=== PATIENT | female | born 1975 | race Caucasian/White ===

== ENCOUNTER 2022-09-09 13:53 | Inpatient (IN) ==
--- NOTE | 2022-09-09 14:43 | Electrocardiogram Report ---
Test Reason : Blood Pressure : / mmHG Vent. Rate : 098 BPM Atrial Rate : 098 BPM P-R Int : 156 ms QRS Dur : 094 ms QT Int : 360 ms P-R-T Axes : 079 066 066 degrees QTc Int : 459 ms Normal sinus rhythm Normal ECG No previous ECGs available Confirmed by Robert Alston ([id number]) on 09/09/2022 2:43:15 PM Referred By: Confirmed By:Robert Alston
[2022-09-09] MEDS ORDERED: SODIUM CHLORIDE 0.9% 250 ML IV PRN (14:54)
[2022-09-09] MEDS ORDERED: SODIUM CHLORIDE 0.9% 1000ML 1,000 ML IV ONE (14:58)
--- NOTE | 2022-09-09 15:02 | Emergency Department Note ---
Impression & Plan Transaminitis, Tobacco use, Anemia, History of alcohol use ED Provider Note Provider: Myron Shukla MD DATE OF SERVICE: 09/09/2022 CHIEF COMPLAINT: Weak/dizzy HISTORY OF PRESENT ILLNESS: Patient is a 47-year-old female history depression presenting here today after outpatient blood work showed significant anemia. Patient seen in the outpatient setting earlier. Reports some black stool over the past week. Feeling bit dizzy and weak at times. Denies any pain. Denies drug use. Denies to me alcohol use although daughter and notes rarely indicates that she does have a history of alcohol use significantly. Patient denies significant nausea or vomiting. No syncope reported. Had had some minimal falls of several weeks ago but nothing in the last several days. Denies a history of blood transfusion. Family states she may have had a little bit of jaundice earlier in the week. PAST MEDICAL HISTORY: As noted above MEDICATIONS: Reviewed home medication list includes PPI SOCIAL HISTORY: PHYSICAL EXAM: GENERAL: alert and oriented in no acute distress on stretcher Head: normocephalic and atraumatic EYES: No injection, discharge or icterus. NECK: Trachea midline. Supple. ENT: Mucous membranes pink and moist. Pharynx without erythema or exudate. LUNGS: Airway patent. No retractions. Breath sounds clear with good air entry bilaterally. HEART: Regular rate and rhythm. No chest wall tenderness ABDOMEN: Soft and non-tender, without guarding or rebound. SKIN: Acyanotic, warm, dry, without rashes EXTREMITIES: Without swelling, tenderness or deformity NEUROLOGICAL: No focal deficits. No aphasia. No facial droop or slurred speech. Normal strength and tone in the extremities. Sensation to gross touch normal. Ambulatory. EK bpm normal sinus rhythm. No PVC or PAC. No acute ST segment elevation or depression with a QTc of 459. CONTINUOUS CARDIAC MONITORING: was ordered and showed a heart rate of 90s bpm in normal sinus rhythm Patient's laboratory studies and imaging reviewed. Differential includes Diverticulosis, AVM, coagulopathy, colitis, inflammatory bowel disease, malignancy, Camila-Mcmullen tear, esophagitis, peptic ulcer disease, variceal bleed, gastritis, epistaxis, fissure, hemorrhoids, as well as other pathologies. IMPRESSION/MEDICAL DECISION MAKING: Microcytic anemia is noted and repeat labs here show slightly lower hemoglobin of 6.5. Initially hypotensive here and given some IV fluids to which she responded well. Not having active upper GI vomiting and BUN not severely elevated. Question more of a slow chronic process but does appear to have some Hemoccult positive melena. Mild hyponatremia of 129 noted. Although no signifi cant trauma to complete a CT of the head as well as the abdomen pelvis given the report that there is some alcohol use to exclude any occult injury. CT reports are reassuring with only some hepatic steatosis noted. Given some Protonix although again I doubt this is a severe upper GI bleed at this point. Mild transaminitis without bilirubin elevation again seems more likely related to possibly some underlying mild liver inflammation. Iron and hepatitis panel sent. 1 unit of blood ordered with consent complete. May need more depending on trend of her hemoglobin. Discussed with her staying for further evaluation to monitor both for stability of her hemoglobin as well as further work-up of her LFT abnormalities and underlying cause of anemia. Given a nicotine patch per her request as she is a smoker. Discussed with hospitalist and will need to monitor for withdrawal symptoms. DIAGNOSIS: Anemia, melena, transaminitis DISPOSITION: Hospitalist will evaluate Patient was agreeable with this plan. Critical Care I have personally spent 32 minutes of critical care time in the direct management of this patient. This includes bedside care, interpretation of diagnostic studies, and testing, discussion with consultants, patient, and family members, and other required patient management activities. These 32 minutes is in excess of all separately billable procedures. Past Med/Surg History Medical History Acid reflux Tobacco use Surgical History History of cryosurgery Family History Mother Lung cancer Throat cancer Cervical cancer, Onset Age: 64 Father Atrial fibrillation Sister Known health problems: none Sister No problems noted. Daughter No problems noted. Denies family history of Colon cancer Ovarian cancer Prostate cancer Myocardial infarction Breast cancer Uterine cancer Social History Smoking Status: Current every day smoker Tobacco Type: Cigarettes Age Started Using Tobacco: 28; packs per day: 1; Second Hand Exposure: Yes; Do You Dip or Chew Tobacco: No; Hx Alcohol Use: Yes Alcohol type: beer and wine Alcohol Intake Frequency: Monthly or Less Hx Substance Use: No Preferred Language: German Communication Ability: Effective Visual Impairment: No Limitations Hearing Ability: Normal [employer] Required: No marital status: Current Living Situation: Spouse current occupational status: employed 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 Feels Safe at Home: Yes Childhood Exposure to Second-Hand Smoke: Yes Diet: regular Diet Comment: regular caffeine: Yes during the past year weight has: remained stable Dental Care, Regularly: Yes Physical Activity Frequency: 1-2 Times per Week Seatbelt Use: always Sunscreen Use: No Assistive Devices: Glasses Allergies Allergies Allergy/AdvReac Type Severity Reaction Status Date / Time bee venom protein (honey bee) Allergy Verified 09/09/22 07:53 No Known Drug Allergies Allergy Verified 09/09/22 07:53 Home Meds Home Medications Medication Instructions Recorded Confirmed diphenhydramine HCl 25 mg capsule 25 mg PO HS PRN Sleep 02/27/21 09/09/22 (Benadryl) Previous Rx's Medication Instructions Recorded omeprazole 20 mg capsule,delayed 20 mg PO DAILY #90 caps 05/06/22 release bupropion HCl 100 mg tablet,12 hr 100 mg PO BID #180 ea 09/09/22 sustained-release (Wellbutrin SR) Results & Data (ED) Vital Signs Vital Signs - 24 hr 09/09/22 14:03 09/09/22 14:38 09/09/22 14:44 Temperature 36.8 C Temperature Source Temporal Artery Scan Pulse Rate 111 H 101 H 99 H Pulse Rate from SpO2 Sensor 99 H Respiratory Rate 16 16 Blood Pressure 98/61 L 118/73 Blood Pressure Mean 73 88 Pulse Oximetry 99 99 Oxygen Delivery Method Room Air Oxygen Flow Rate Sepsis Recent Fever Within 48 Hours No Sepsis New/Unexplained Change in Mental Status N/A Sepsis Action Taken by Nursing Physician Notified 09/09/22 15:00 09/09/22 16:57 09/09/22 17:15 Temperature 37.1 C 37.3 C Temperature Source Oral Oral Pulse Rate 95 H 94 H 93 H Pulse Rate from SpO2 Sensor Respiratory Rate 19 20 18 Blood Pressure 107/69 110/64 116/76 Blood Pressure Mean 81 79 89 Pulse Oximetry 98 99 Oxygen Delivery Method Oxygen Flow Rate 0 Sepsis Recent Fever Within 48 Hours Sepsis New/Unexplained Change in Mental Status Sepsis Action Taken by Nursing Laboratory Data 09/09/22 14:21 09/09/22 14:21 Lab Results 09/09/22 09/09/22 09/09/22 Range/Units 14:21 14:21 14:21 WBC 5.53 (4.8-10.8) K/ul RBC 2.80 L (4.20-5.40) M/uL Hgb 6.5 L* (12.0-16.0) g/dl Hct 21.3 L (37.0-47.0) % MCV 76.1 L (80.0-100.0) fL MCH 23.2 L (25.0-34.0) pg MCHC 30.5 L (32.0-36.0) g/dL RDW Std Deviation 49.1 H (36.4-46.3) fL RDW Coeff of Lewis 17.8 H (11.5-14.5) % Plt Count 201 (130-400) K/uL MPV 9.1 L (9.4-12.4) fL PT 10.9 (9.0-12.0) Seconds INR 1.0 (0.9-1.1) APTT 25.3 (21.0-31.0) Seconds PTT Ratio 0.9 Sodium (136-145) mmol/L Potassium (3.5-5.1) mmol/L Chloride (98-107) mmol/L Carbon Dioxide (21-32) mmol/L Anion Gap (3-11) BUN (6-23) mg/dl Creatinine (0.6-1.2) mg/dl Est Cr Clr Drug Dosing ml/min Est GFR ( Amer) ml/min Est GFR (Non-Af Amer) ml/min BUN/Creatinine Ratio (10-20) Glucose (70-99(Fasting)) mg/dl Calcium (8.6-10.3) mg/dl Iron (35-150) mcg/dl TIBC (250-450) mcg/dl Unsaturated IBC (155-355) mcg/dl Transferrin % Sat (15-50) % Total Bilirubin (0.2-1.0) mg/dl AST (13-39) U/L ALT (7-52) U/L Alkaline Phosphatase (34-104) U/L Troponin I High Sens (0-14) pg/ml Total Protein (6.0-8.3) gm/dl Albumin (3.4-5.0) gm/dl Globulin (2.5-4.0) gm/dl Albumin/Globulin Ratio (0.9-2) HCG, Qual (Negative) POC Stool Occult Blood (Negative) SARS-CoV-2, RNA, NAAT (NEGATIVE) Blood Type A Negative Blood Type Recheck Antibody Screen NEGATIVE Crossmatch See Detail 09/09/22 09/09/22 09/09/22 Range/Units 14:21 14:21 14:21 WBC (4.8-10.8) K/ul RBC (4.20-5.40) M/uL Hgb (12.0-16.0) g/dl Hct (37.0-47.0) % MCV (80.0-100.0) fL MCH (25.0-34.0) pg MCHC (32.0-36.0) g/dL RDW Std Deviation (36.4-46.3) fL RDW Coeff of Lewis (11.5-14.5) % Plt Count (130-400) K/uL MPV (9.4-12.4) fL PT (9.0-12.0) Seconds INR (0.9-1.1) APTT (21.0-31.0) Seconds PTT Ratio Sodium 129 L (136-145) mmol/L Potassium 3.7 (3.5-5.1) mmol/L Chloride 99 (98-107) mmol/L Carbon Dioxide 26 (21-32) mmol/L Anion Gap 4 (3-11) BUN 4 L (6-23) mg/dl Creatinine 0.45 L (0.6-1.2) mg/dl Est Cr Clr Drug Dosing 125.1 ml/min Est GFR ( Amer) 136.4 ml/min Est GFR (Non-Af Amer) 117.7 ml/min BUN/Creatinine Ratio 8.9 L (10-20) Glucose 81 (70-99(Fasting)) mg/dl Calcium 8.1 L (8.6-10.3) mg/dl Iron 10 L Cancelled (35-150) mcg/dl TIBC 310 Cancelled (250-450) mcg/dl Unsaturated IBC 300 Cancelled (155-355) mcg/dl Transferrin % Sat 3 L Cancelled (15-50) % Total Bilirubin 0.2 (0.2-1.0) mg/dl AST 160 H (13-39) U/L ALT 75 H (7-52) U/L Alkaline Phosphatase 207 H (34-104) U/L Troponin I High Sens 8.2 (0-14) pg/ml Total Protein 7.6 (6.0-8.3) gm/dl Albumin 3.2 L (3.4-5.0) gm/dl Globulin 4.4 H (2.5-4.0) gm/dl Albumin/Globulin Ratio 0.7 L (0.9-2) HCG, Qual Negative (Negative) POC Stool Occult Blood (Negative) SARS-CoV-2, RNA, NAAT (NEGATIVE) Blood Type Blood Type Recheck Antibody Screen Crossmatch 09/09/22 09/09/22 09/09/22 Range/Units 14:50 15:05 15:52 WBC (4.8-10.8) K/ul RBC (4.20-5.40) M/uL Hgb (12.0-16.0) g/dl Hct (37.0-47.0) % MCV (80.0-100.0) fL MCH (25.0-34.0) pg MCHC (32.0-36.0) g/dL RDW Std Deviation (36.4-46.3) fL RDW Coeff of Lewis (11.5-14.5) % Plt Count (130-400) K/uL MPV (9.4-12.4) fL PT (9.0-12.0) Seconds INR (0.9-1.1) APTT (21.0-31.0) Seconds PTT Ratio Sodium (136-145) mmol/L Potassium (3.5-5.1) mmol/L Chloride (98-107) mmol/L Carbon Dioxide (21-32) mmol/L Anion Gap (3-11) BUN (6-23) mg/dl Creatinine (0.6-1.2) mg/dl Est Cr Clr Drug Dosing ml/min Est GFR ( Amer) ml/min Est GFR (Non-Af Amer) ml/min BUN/Creatinine Ratio (10-20) Glucose (70-99(Fasting)) mg/dl Calcium (8.6-10.3) mg/dl Iron (35-150) mcg/dl TIBC (250-450) mcg/dl Unsaturated IBC (155-355) mcg/dl Transferrin % Sat (15-50) % Total Bilirubin (0.2-1.0) mg/dl AST (13-39) U/L ALT (7-52) U/L Alkaline Phosphatase (34-104) U/L Troponin I High Sens (0-14) pg/ml Total Protein (6.0-8.3) gm/dl Albumin (3.4-5.0) gm/dl Globulin (2.5-4.0) gm/dl Albumin/Globulin Ratio (0.9-2) HCG, Qual (Negative) POC Stool Occult Blood Positive A (Negative) SARS-CoV-2, RNA, NAAT NEGATIVE (NEGATIVE) Blood Type Blood Type Recheck A Negative Antibody Screen Crossmatch Administered Medications Pantoprazole Sodium 40 mg/ (Dextrose) 100 mls @ 20 mls/hr IV Q5H DIAMOND Stop: 10/09/22 15:29 Last Admin: 09/09/22 15:59 Dose: 8 mg/hr, 20 mls/hr Documented By: ROMA Nicotine (Nicotine 21 Mg/24 Hr Tdsy) 21 mg TD QAM DIAMOND Stop: 10/09/22 16:14 Last Admin: 09/09/22 16:22 Dose: 21 mg Documented By: ROMA Discontinued Medications Sodium Chloride (Nss 1000ml) 1,000 mls @ 999 mls/hr IV .Q1H1M ONE Stop: 09/09/22 15:58 Last Infusion: 09/09/22 16:08 Dose: 0 mls/hr Documented By: Admin: 09/09/22 15:07 Dose: 999 mls/hr Documented By: MALENA Pantoprazole Sodium (Protonix Bolus/Drip) 0 mls @ 1 mls/hr IV ONE STA Stop: 09/09/22 15:16 Last Infusion: 09/09/22 16:14 Dose: 0 mls/hr Documented By: Admin: 09/09/22 16:04 Dose: 1 mls/hr Documented By: ROMA Pantoprazole Sodium 80 mg/ (Dextrose) 120 mls @ 400 mls/hr IV NOW ONE Stop: 09/09/22 15:32 Last Infusion: 09/09/22 15:55 Dose: 0 mls/hr Documented By: Admin: 09/09/22 15:37 Dose: 400 mls/hr Documented By: ROMA Ioversol (Optiray 320 100ml) 84 ml IV ONCE ONE Stop: 09/09/22 15:22 Last Admin: 09/09/22 15:22 Dose: 84 ml Documented By: YOSEF Imaging Data Radiologist's Impression: Abdomen/Pelvis CT 09/09/22 14:54 CT abd pelvis IV con only CLINICAL HISTORY: anemia, elevated LFTs TECHNIQUE: Helical axial images of the abdomen and pelvis were obtained and displayed. Automated dose lowering techniques and/or adjustment according to patient size were utilized for this exam. This exam was performed with intravenous contrast. CT DOSE: 1036.75 mGy.cm COMPARISON: Comparison is made to pelvic ultrasound 03/24/2019 FINDINGS: Lower chest: No acute abnormality. Liver: Hepatic steatosis is noted. Gallbladder and biliary tree: No calcified gallstones. Normal caliber wall. No intra- or extrahepatic biliary ductal dilation. Pancreas: Unremarkable, no focal lesions. Spleen: Unremarkable. Adrenals: Unremarkable. Kidneys and ureters: Unremarkable. Bladder: Prominence of the bladder is seen. Reproductive organs: Unremarkable. Bowel: Unremarkable. Lymph nodes Retroperitoneal: Unremarkable. Pelvic: Unremarkable. Mesenteric: Unremarkable. Peritoneum: Normal. Vessels: Atherosclerotic calcifications are seen. Abdominal wall: Unremarkable. Bones: Degenerative changes in the visualized spine. IMPRESSION: Hepatic steatosis is seen, steatohepatitis cannot be excluded. Otherwise no acute abnormalities. ACT 112: Negative or not required by law. Electronically signed by: Wes Tse M.D. 09/09/2022 3:[address] 09/09/22 14:[address] DOSE: HISTORY: dizzy TECHNIQUE: Multiaxial CT images of the head were performed without the use of intravenous contrast. Automated exposure control was utilized for this study. A dose lowering technique was utilized adhering to the principles of ALARA. Comparison: None. Findings: The paranasal sinuses and mastoid air cells are clear. The calvarium and skull base are intact. The ventricles and sulci are within normal limits. There is no mass, hematoma, midline shift, or acute infarct. Impression: No acute intracranial abnormality. ACT 112: Negative or not required by law. Electronically signed by: Laith Hays M.D. 09/09/2022 3:47 PM Discharge Plan Visit Data Chief Complaint: Vertigo Stated Complaint: DIZZY,LOW BLOOD,REF BY DOC,HEMOGLOBIN 7 ED Provider: Myron Shukla Discharge Problem: Transaminitis, Tobacco use, Anemia, History of alcohol use Patient Disposition: Being Evaluated by Hospitalist Forms Stand Alone Forms: My [facility] [place] [facility] Prescriptions Prescriptions: No Action omeprazole 20 mg capsule,delayed release(DR/EC) 20 mg PO DAILY Qty: 90 1RF diphenhydramine HCl [Benadryl] 25 mg capsule 25 mg PO HS PRN (Reason: Sleep) bupropion HCl [Wellbutrin SR] 100 mg tablet sustained-release 12 hr 100 mg PO BID Qty: 180 1RF Referrals Referrals: Patricia Arias MD [Primary Care Provider] -
[2022-09-09 15:03] LABS: Albumin Globulin Ratio 0.7 (0.9-2); Albumin Level 3.2 gm/dl (3.4-5.0); BUN Creatinine Ratio 8.9 (10-20); Bilirubin,Total 0.2 mg/dl (0.2-1.0); Calcium 8.1 mg/dl (8.6-10.3); Creatinine Clr Calc Pharmacy 125.1 ml/min; Est GFR (African American) 136.4 ml/min; Est GFR (Non-African American) 117.7 ml/min; Globulin 4.4 gm/dl (2.5-4.0); Potassium 3.7 mmol/L (3.5-5.1); Total Protein 7.6 gm/dl (6.0-8.3)
[2022-09-09 15:04] LABS: Partial Thromboplastin Ratio 0.9; Partial Thromboplastin Time 25.3 Seconds (21.0-31.0); Prothrombin Time 10.9 Seconds (9.0-12.0)
[2022-09-09 15:08] LABS: Hematocrit (blood only) 21.3 % (37.0-47.0); Hemoglobin 6.5 g/dl (12.0-16.0); Mean Corpuscular Hemoglobin 23.2 pg (25.0-34.0); Mean Corpuscular Hgb Conc 30.5 g/dL (32.0-36.0); Mean Corpuscular Volume 76.1 fL (80.0-100.0); Mean Platelet Volume 9.1 fL (9.4-12.4); Platelet Count 201 K/uL (130-400); RDW Coefficient of Variation 17.8 % (11.5-14.5); RDW Standard Deviation 49.1 fL (36.4-46.3); White Blood Count 5.53 K/ul (4.8-10.8)
[2022-09-09 15:09] LABS: Troponin I High Sensitivity 8.2 pg/ml (0-14)
[2022-09-09] MEDS ORDERED: PANTOprazole 80 MG in DEXTROSE 5% 100 ML IV ONE (15:15)
[2022-09-09] MEDS ORDERED: PANTOPRAZOLE BOLUS/DRIP 1 EACH IV STA (15:15)
[2022-09-09] MEDS ORDERED: OPTIRAY 320 100ml IV ONE (15:21)
[2022-09-09 15:37] LABS: Pregnancy Test, Serum Negative (Negative)
--- NOTE | 2022-09-09 15:49 | CT Scan Report ---
HEAD CT NONCONTRAST CT DOSE: HISTORY: dizzy TECHNIQUE: Multiaxial CT images of the head were performed without the use of intravenous contrast. A utomated exposure control was utilized for this study. A dose lowering technique was utilized adheri ng to the principles of ALARA. Comparison: None. Findings: The paranasal sinuses and mastoid air cells are clear. The calvarium and skull base are int act. The ventricles and sulci are within normal limits. There is no mass, hematoma, midline shift, or acute infarct. Impression: No acute intracranial abnormality. ACT 112: Negative or not required by law. Electronically signed by: Laith Hays M.D. 09/09/2022 3:47 PM
--- NOTE | 2022-09-09 15:50 | CT Scan Report ---
CT abd pelvis IV con only CLINICAL HISTORY: anemia, elevated LFTs TECHNIQUE: Helical axial images of the abdomen and pelvis were obtained and displayed. Automated dose lowering techniques and/or adjustment according to patient size were utilized for this exam. This e xam was performed with intravenous contrast. CT DOSE: 1036.75 mGy.cm COMPARISON: Comparison is made to pelvic ultrasound 03/24/2019 FINDINGS: Lower chest: No acute abnormality. Liver: Hepatic steatosis is noted. Gallbladder and biliary tree: No calcified gallstones. Normal caliber wall. No intra- or extrahepatic biliary ductal dilation. Pancreas: Unremarkable, no focal lesions. Spleen: Unremarkable. Adrenals: Unremarkable. Kidneys and ureters: Unremarkable. Bladder: Prominence of the bladder is seen. Reproductive organs: Unremarkable. Bowel: Unremarkable. Lymph nodes Retroperitoneal: Unremarkable. Pelvic: Unremarkable. Mesenteric: Unremarkable. Peritoneum: Normal. Vessels: Atherosclerotic calcifications are seen. Abdominal wall: Unremarkable. Bones: Degenerative changes in the visualized spine. IMPRESSION: Hepatic steatosis is seen, steatohepatitis cannot be excluded. Otherwise no acute abnormalities. ACT 112: Negative or not required by law. Electronically signed by: Wes Tse M.D. 09/09/2022 3:49 PM
[2022-09-09] MEDS: PANTOprazole 40 MG in DEXTROSE 5% 100 ML IV SCH (15:59)
[2022-09-09] MEDS: NICOTINE 21 MG/24 HR TDSY TD SCH (16:22)
--- NOTE | 2022-09-09 16:29 | History & Physical Report ---
Date of Service September 09, 2022 Assessment & Plan (1) Chronic anemia: Plan: Symptomatic anemia Hemoglobin initially 7.0, recheck 6.5 - Hemoglobin was 13.4 in 2019, hemoglobin on initial ER evaluation 7.0 on recheck 6.5 while in ER. MCV is microcytic at 76.1. Patient is hyponatremic at 129, creatinine 0.45. Patient did have some lightheadedness and dizziness prior to admission and reports a few episodes intermittently in the preceding months. Has not had chest pain, chest pressure, shortness of breath, difficulty breathing at any point. Uses a push mower without chest pain baseline. No syncope Transferrin saturation 3% with Hemoccult positive stool, patient endorses melena intermittently over the last week. No melena prior to this. BUN is not elevated Patient is mentating normally, MCV 76, suspect that this is a slow chronic bleed +/- nutritional insufficiency rather than acute bleeding. Does have a history of GERD, although no epigastric tenderness on evaluation. Transfuse to threshold of 7.0, H&H pending post 1 unit of blood which has been ordered B12, folate levels pending Follow hemoglobin post transfusion. If appropriate rise >1.0g in stable, then defer additional blood, transfuse for threshold of 7.0 on recheck, and start v enofer 09/10-09/12 which has been ordered. If additional blood requried hold venofer, do not give same day. Iron 10, TIBC 310, UIBC 300, transferrin saturation 3% High-sensitivity troponin is normal at 8.2 Occult blood positive stool, intermittent dark stool in the last week. No prior melena. CTA/P with IV contrast: Hepatic steatosis, no other acute abnormalities. No evidence of extravasation/ EKG: Normal sinus rhythm, QTc 459, no acute ischemic changes If hemoglobin up trends, and patient does well with blood transfusion, PPI, and Venofer may continue medical management and PPI twice daily and have EGD/colonoscopy as outpatient. If patient is hemodynamically unstable or has continued downtrend of hemoglobin, consult GI for inpatient evaluation and endoscopy at that time Transaminitis suspect from alcohol use Patient with increased alcohol for at least 2 months, patient reports she drinks 3 to 5 days/week ranging from 4-10 beers per sitting. Last drink evening of 09/08 Patient is with transaminitis AST 160, ALT 75, alk phos 207. Total bilirubin is normal CT as noted with hepatic steatosis No prior history of withdrawal, no stretches more than 4 days alcohol free in the preceding 2 months AVSS ordered Thiamine high-dose protocol ordered, folic acid ordered Banana bag deferred while patient is receiving blood. Hepatitis acute panel pending Anxiety/depression Bupropion held while n.p.o. GERD Omeprazole converted to PPI bolus and twice daily push as noted Patient has no epigastric tenderness on exam but has had melena Hyponatremia Sodium 129, mild Suspect solute depletion IVF M as above, trend BMP. If sodium downtrending, will fluid restrict and obtain urine sodium/urine osmolality/serum osmolality. If sodium improves/normalizes following fluids defer these. BMP in 6 hours ordered DVT prophylaxis: SCDs, pharmacal prophylaxis contraindicated in the setting of bleed/anemia Diet: N.p.o., LR IV FM Disposition: PCU CODE STATUS: Full code (2) Melena: (3) Alcohol abuse: (4) Tobacco use: (5) Acid reflux: History of Present Illness Primary Care Provider: Patricia Arias MD Sobeida is a 47-year-old female with a past medical history of alcohol abuse, hypertension, depression, GERD, tobacco use who presents for symptomatic anemia. Sobeida reports that she fell on Friday. Has been having black tarry stools for 1 week. Has them intermittently not every day. No stomach pain. No nausea or vomiting.Prior to this week no dark/black BMs. Lightheadedness and dizziness started one week ago. Has had intermittently off and on in the past a few episodes a month. Eppisodes usually last a few hours. Sitting improves them, manning snot note any exacerbating factors. No vertigo. No history of bleeding problems. No fevers, chills, or sweats. No recent illnesses. No chest pain or chest or chest pressure. Has >10 stairs in her home and goes up those and she push mow her grass. No chest pain or pressure/shortness of breath with those activities. Endorses hx of acid reflux/GERD for a few years but seems to be 'under control' with 20mg of prilosec daily which she has been on for at least 3 years. No history of upper endoscopy or lower endoscopy. Uses ibuprofen occasionally, usually about monthly will take 4x 200mg usually just once and does OK, uses as needed for muscle strains and headache as normal Denies other medical problems. NO family history of bleeding problems. Father had a history of afib with cardioembolic CVA around 60s. No family history of colon or rectal cancer Medical History: Reviewed Medications: Reviewed Surgical History: Reviewed. Family history: Reviewed Allergies: Reviewed. NKDA, NKFA. Allergic to bees. Social History: Current smoker, 1ppd tobacco use x20 years. Alcohol ~3-4, beer and number ranges from 3-10 per day. Last drink yesteday evening. No rec drug or marijuana use. Code Status: Full Code. Allergies Allergy/AdvReac Type Severity Reaction Status Date / Time bee venom protein (honey bee) Allergy Verified 09/09/22 07:53 No Known Drug Allergies Allergy Verified 09/09/22 07:53 Home Medications Medication Instructions Recorded Confirmed Type diphenhydramine HCl 25 mg capsule 25 mg PO HS PRN Sleep 02/27/21 09/09/22 History (Benadryl) omeprazole 20 mg capsule,delayed 20 mg PO DAILY #90 caps 05/06/22 09/09/22 Rx release bupropion HCl 100 mg tablet,12 hr 100 mg PO BID #180 ea 09/09/22 09/09/22 Rx sustained-release (Wellbutrin SR) Past Med/Surg History Medical History Acid reflux Tobacco use Surgical History History of cryosurgery Family History Mother Lung cancer Throat cancer Cervical cancer, Onset Age: 64 Father Atrial fibrillation Sister Known health problems: none Sister No problems noted. Daughter No problems noted. Denies family history of Colon cancer Ovarian cancer Prostate cancer Myocardial infarction Breast cancer Uterine cancer Social History Smoking Status: Current every day smoker Tobacco Type: Cigarettes Age Started Using Tobacco: 28; packs per day: 1; Second Hand Exposure: Yes; Do You Dip or Chew Tobacco: No; Hx Alcohol Use: Yes Alcohol type: beer and wine Alcohol Intake Frequency: Monthly or Less Hx Substance Use: No Preferred Language: [place] Communication Ability: Effective Visual Impairment: No Limitations Hearing Ability: Normal [employer] Consultant Required: No marital status: Current Living Situation: Spouse current occupational status: employed 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 Feels Safe at Home: Yes Childhood Exposure to Second-Hand Smoke: Yes Diet: regular Diet Comment: regular caffeine: Yes during the past year weight has: remained stable Dental Care, Regularly: Yes Physical Activity Frequency: 1-2 Times per Week Seatbelt Use: always Sunscreen Use: No Assistive Devices: Glasses Review of Systems Review of Systems: All systems reviewed & are unremarkable except as noted in HPI & below Physical Exam Physical Exam: General: A&Ox3. NAD. Cooperative. HEENT: Atraumatic, normocephalic. Vision/hearing intact Pulm: CTAB A&P. -wheezes, -rales, -rhonchi. Symmetrical chest rise. No increased work of breathing. No respiratory distress. Cardiac: Mild tachycardia, regular, -mrg. Radial pulses intact and symmetrical. Abdominal: Nontender, nondistended, soft. BS present. Specific there is no epigastric tenderness on exam Extremities: Warm, dry. Distal extremity strength and sensation is intact and symmetrical. Results & Data Results & Data Vital Signs (Past 12 Hours) Vital Signs Temp Pulse Resp BP Pulse Ox O2 Del Method 09/09/22 15:00 95 H 19 107/69 09/09/22 14:44 99 H 16 118/73 99 Room Air 09/09/22 14:38 101 H 09/09/22 14:03 36.8 C 111 H 16 98/61 L 99 PG Care Time/CCT Total # of Minutes Spent Total Time Spent with Patient: Total time spent is greater than 50% in coordination of care (as documented) at patient's floor/unit and/or counseling patient: Coding Level of Care Code 93315 INT INP/OBS CARE 3/75MIN Diagnoses Chronic anemia D64.9 Melena K92.1 Alcohol abuse F10.10 Tobacco use Z72.0 Acid reflux K21.9
[2022-09-09 19:01] LABS: Appearance Urine Clear (Clear); Bilirubin Urine Negative (Negative); Blood Urine Negative (Negative); Color Urine Yellow; Glucose Urine UA Negative (Negative); Ketones Urine Negative (Negative); Leukocyte Esterase Urine Negative (Negative); Nitrite Urine Negative (Negative); Protein Urine Negative (Negative); Specific Gravity Urine 1.026 (1.000-1.030); Urobilinogen Urine Negative (Negative); pH Urine 5.5 (4.5-7.5)
[2022-09-09] MEDS ORDERED: Ativan PO Alcohol Withdrawal--Active Protocol PO PRN (19:53)
[2022-09-09] MEDS ORDERED: LORazepam 1 MG TAB PO PRN ×3 (19:53)
[2022-09-09] MEDS ORDERED: LORazepam 2 MG/1 ML VIAL IV PRN ×2 (19:56→20:30)
[2022-09-09] MEDS ORDERED: THIAMINE HCL 100 MG/ML 2 ML VIAL IV STA (20:30)
[2022-09-09] MEDS ORDERED: THIAMINE HCL 500 MG in SODIUM CHLORIDE 0.9% 50 ML IV STA (20:37)
[2022-09-09] MEDS: FOLIC ACID 1 MG in SYRINGE 9.8 ML IV SCH (21:33)
[2022-09-09] MEDS: PANTOprazole 40 MG in SYRINGE 0 ML IV SCH (21:33)
[2022-09-09] MEDS: LACTATED RINGER'S 1,000 ML IV SCH (21:42)
[2022-09-09] MEDS ORDERED: diphenhydrAMINE 50 MG/ML VIAL IV STA (22:27)
[2022-09-09 22:49] LABS: Hematocrit (blood only) 22.3 % (37.0-47.0); Hemoglobin 7.2 g/dl (12.0-16.0)
[2022-09-09 23:05] LABS: BUN Creatinine Ratio 9.3 (10-20); Calcium 7.3 mg/dl (8.6-10.3); Creatinine Clr Calc Pharmacy 125.2 ml/min; Est GFR (African American) 138.4 ml/min; Est GFR (Non-African American) 119.4 ml/min; Potassium 3.7 mmol/L (3.5-5.1)
[2022-09-10 03:51] LABS: Basophils # (auto) 0.06 K/uL (0-0.2); Basophils % (auto) 0.9 %; Eosinophils # (auto) 0.06 K/uL (0-0.50); Eosinophils % (auto) 0.9 %; Hematocrit (blood only) 24.3 % (37.0-47.0); Hemoglobin 7.9 g/dl (12.0-16.0); Immature Granulocytes # (auto) 0.05 K/uL (0.01-0.20); Immature Granulocytes % (auto) 0.7 %; Lymphocytes # (auto) 0.88 K/uL (1.2-3.4); Lymphocytes % (auto) 13.1 %; Mean Corpuscular Hgb Conc 32.5 g/dL (32.0-36.0); Mean Corpuscular Volume 76.9 fL (80.0-100.0); Mean Platelet Volume 9.2 fL (9.4-12.4); Monocytes # (auto) 0.84 K/uL (0.11-0.59); Monocytes % (auto) 12.5 %; Neutrophils # (auto) 4.82 K/uL (1.40-6.50); Neutrophils % (auto) 71.9 %; Platelet Count 182 K/uL (130-400); RDW Standard Deviation 50.5 fL (36.4-46.3); Red Blood Count 3.16 M/uL (4.20-5.40); White Blood Count 6.71 K/ul (4.8-10.8)
[2022-09-10 04:06] LABS: Albumin Globulin Ratio 0.7 (0.9-2); Albumin Level 2.7 gm/dl (3.4-5.0); BUN Creatinine Ratio 10.9 (10-20); Bilirubin,Total 0.4 mg/dl (0.2-1.0); Calcium 7.5 mg/dl (8.6-10.3); Est GFR (African American) 135.4 ml/min; Est GFR (Non-African American) 116.8 ml/min; Potassium 3.7 mmol/L (3.5-5.1); Total Protein 6.7 gm/dl (6.0-8.3)
[2022-09-10 04:10] LABS: Polychromasia 1+; Target Cells 1+
[2022-09-10] MEDS: LACTATED RINGER'S 1,000 ML IV SCH ×3 (06:05→23:42)
[2022-09-10] MEDS: PANTOprazole 40 MG in SYRINGE 0 ML IV SCH ×2 (07:49→21:06)
[2022-09-10] MEDS: FOLIC ACID 1 MG in SYRINGE 9.8 ML IV SCH (07:49)
[2022-09-10] MEDS: THIAMINE HCL 100 MG in SYRINGE 9 ML IV SCH (07:49)
[2022-09-10] MEDS: NICOTINE 21 MG/24 HR TDSY TD SCH (09:44)
[2022-09-10] MEDS ORDERED: IRON SUCROSE 400 MG in SODIUM CHLORIDE 0.9% 250 ML IV ONE (10:00)
[2022-09-10 10:27] LABS: Hematocrit (blood only) 23.5 % (37.0-47.0); Hemoglobin 7.7 g/dl (12.0-16.0)
[2022-09-10] MEDS ORDERED: chlordiazePOXIDE ALCOHOL WITHDRAWL 50MG PO STA (14:28)
[2022-09-10 14:54] LABS: Hematocrit (blood only) 25.4 % (37.0-47.0); Hemoglobin 8.3 g/dl (12.0-16.0)
[2022-09-10] MEDS: chlordiazePOXIDE HCl 25 MG CAP PO SCH ×2 (14:59→21:06)
[2022-09-10 15:36] LABS: Iron 736 mcg/dl (35-150); Unsaturated Iron Binding Cap < 55 mcg/dl (155-355)
[2022-09-10 15:43] LABS: Ferritin 23.3 ng/ml (8-388)
[2022-09-10] MEDS: PANTOprazole 40 MG in DEXTROSE 5% 100 ML IV SCH (19:10)
--- NOTE | 2022-09-10 21:18 | Hospitalist Progress Note ---
Date of Service September 10, 2022 Assessment & Plan (1) Chronic anemia: Plan: Symptomatic anemia Hemoglobin initially 7.0, recheck 6.5 - Hemoglobin was 13.4 in 2019, hemoglobin on initial ER evaluation 7.0 on recheck 6.5 while in ER. MCV is microcytic at 76.1. Patient is hyponatremic at 129, creatinine 0.45. Patient did have some lightheadedness and dizziness prior to admission and reports a few episodes intermittently in the preceding months. Has not had chest pain, chest pressure, shortness of breath, difficulty breathing at any point. Uses a push mower without chest pain baseline. No syncope Transferrin saturation 3% with Hemoccult positive stool, patient endorses melena intermittently over the last week. No melena prior to this. BUN is not elevated Patient is mentating normally, MCV 76, suspect that this is a slow chronic bleed +/- nutritional insufficiency rather than acute bleeding. Does have a history of GERD, although no epigastric tenderness on evaluation. Transfuse to threshold of 7.0, H&H pending post 1 unit of blood which has been ordered Blood work is pointing towards iron deficiency anemia. consult GI pending. Patients hemoglobin appears stable. Will continue to monitor hemoglobin. Iron 10, TIBC 310, UIBC 300, transferrin saturation 3% High-sensitivity troponin is normal at 8.2 Occult blood positive stool, intermittent dark stool in the last week. No prior melena. CTA/P with IV contrast: Hepatic steatosis, no other acute abnormalities. No evidence of extravasation/ EKG: Normal sinus rhythm, QTc 459, no acute ischemic changes If hemoglobin up trends, and patient does well with blood transfusion, PPI, and Venofer may continue medical management and PPI twice daily and have EGD/colonoscopy as outpatient. If patient is hemodynamically unstable or has continued downtrend of hemoglobin, consult GI for inpatient evaluation and endoscopy at that time restarted diet Transaminitis suspect from alcohol use Patient with increased alcohol for at least 2 months, patient reports she drinks 3 to 5 days/week ranging from 4-10 beers per sitting. Last drink evening of 09/08 Patient is with transaminitis AST 160, ALT 75, alk phos 207. Total bilirubin is normal CT as noted with hepatic steatosis No prior history of withdrawal, no stretches more than 4 days alcohol free in the preceding 2 months AVSS ordered Thiamine high-dose protocol ordered, folic acid ordered Banana bag deferred while patient is receiving blood. Hepatitis acute panel pending -counseling discussed with patient. -will continue to monitor. -placed on benzo taper dose. Anxiety/depression Bupropion held while n.p.o. GERD Omeprazole converted to PPI bolus and twice daily push as noted Patient has no epigastric tenderness on exam but has had melena Hyponatremia Sodium 129, mild Suspect solute depletion IVF M as above, trend BMP. If sodium downtrending, will fluid restrict and obtain urine sodium/urine osmolality/serum osmolality. If sodium improves/normalizes following fluids defer these. BMP in 6 hours ordered Disposition: PCU CODE STATUS: Full code (2) Melena: (3) Alcohol abuse: (4) Tobacco use: (5) Acid reflux: Admission and Anticipated Discharge Date Admission Date: September 09, 2022 Subjective 47 yo female reports feeling well except for symptoms of withdrawal. She has been having tremors.\Updated . Stool is brown today. Review of Systems Review of Systems: All systems reviewed & are unremarkable except as noted in HPI & below Physical Exam Physical Exam: General: A&Ox3. NAD. Cooperative. HEENT: Atraumatic, normocephalic. Vision/hearing intact Pulm: CTAB A&P. -wheezes, -rales, -rhonchi. Symmetrical chest rise. No increased work of breathing. No respiratory distress. Cardiac: Mild tachycardia, regular, -mrg. Radial pulses intact and symmetrical. Abdominal: Nontender, nondistended, soft. BS present. Specific there is no epigastric tenderness on exam Extremities: Warm, dry. Distal extremity strength and sensation is intact and symmetrical. Results & Data Results & Data Vital Signs (Past 12 Hours) Vital Signs Temp Pulse Resp BP BP Pulse Ox O2 Del Method 09/10/22 19:51 36.9 C 98 H 16 142/94 H 94 Room Air 09/10/22 15:41 37.0 C 109 H 20 168/101 H 96 Room Air 09/10/22 11:46 36.5 C 103 H 17 145/85 H 94 Room Air PG Care Time/CCT Total # of Minutes Spent Total Time Spent with Patient: Total time spent is greater than 50% in coordination of care (as documented) at patient's floor/unit and/or counseling patient: Coding Level of Care Code 62721 SUB INP/OBS CARE 3/50MIN Diagnoses Chronic anemia D64.9 Melena K92.1 Alcohol abuse F10.10 Tobacco use Z72.0 Acid reflux K21.9 Time Spent (min) 50
[2022-09-11] MEDS: MELATONIN 3 MG TAB PO PRN (00:01)
[2022-09-11] MEDS ORDERED: NICOTINE 21 MG/24 HR TDSY TD ONE (01:09)
[2022-09-11] MEDS: chlordiazePOXIDE HCl 25 MG CAP PO SCH ×4 (03:00→21:28)
[2022-09-11] MEDS ORDERED: Nursing to Pharmacy Communication SCH (03:30)
[2022-09-11 06:22] LABS: Basophils # (auto) 0.05 K/uL (0-0.2); Basophils % (auto) 1.1 %; Eosinophils # (auto) 0.07 K/uL (0-0.50); Eosinophils % (auto) 1.6 %; Hematocrit (blood only) 26.9 % (37.0-47.0); Hemoglobin 8.6 g/dl (12.0-16.0); Immature Granulocytes # (auto) 0.03 K/uL (0.01-0.20); Immature Granulocytes % (auto) 0.7 %; Lymphocytes # (auto) 1.43 K/uL (1.2-3.4); Lymphocytes % (auto) 32.1 %; Mean Corpuscular Hemoglobin 24.6 pg (25.0-34.0); Mean Corpuscular Volume 77.1 fL (80.0-100.0); Mean Platelet Volume 9.3 fL (9.4-12.4); Monocytes # (auto) 0.77 K/uL (0.11-0.59); Monocytes % (auto) 17.3 %; Neutrophils % (auto) 47.2 %; Platelet Count 170 K/uL (130-400); RDW Coefficient of Variation 18.6 % (11.5-14.5); RDW Standard Deviation 51.6 fL (36.4-46.3); Red Blood Count 3.49 M/uL (4.20-5.40); White Blood Count 4.45 K/ul (4.8-10.8)
[2022-09-11 06:41] LABS: Albumin Globulin Ratio 0.7 (0.9-2); Albumin Level 2.7 gm/dl (3.4-5.0); BUN Creatinine Ratio 8.5 (10-20); Bilirubin,Total 0.4 mg/dl (0.2-1.0); Calcium 8.4 mg/dl (8.6-10.3); Creatinine Clr Calc Pharmacy 115.2 ml/min; Est GFR (African American) 134.4 ml/min; Globulin 4.1 gm/dl (2.5-4.0); Magnesium 1.6 mg/dl (1.7-2.4); Phosphorus 4.2 mg/dl (2.5-4.9); Potassium 3.3 mmol/L (3.5-5.1); Total Protein 6.8 gm/dl (6.0-8.3)
[2022-09-11] MEDS: LACTATED RINGER'S 1,000 ML IV SCH ×2 (08:17→17:47)
[2022-09-11] MEDS: PANTOprazole 40 MG in SYRINGE 0 ML IV SCH ×2 (08:18→22:28)
[2022-09-11] MEDS: THIAMINE HCL 100 MG in SYRINGE 9 ML IV SCH (08:18)
[2022-09-11] MEDS: NICOTINE 21 MG/24 HR TDSY TD SCH (08:18)
[2022-09-11] MEDS: FOLIC ACID 1 MG in SYRINGE 9.8 ML IV SCH (08:18)
--- NOTE | 2022-09-11 09:50 | Gastrointestinal Consultation ---
Date of Consultation September 11, 2022 Assessment & Plan (1) Transaminitis: (2) Alcohol abuse: (3) Anemia: (4) Melena: Plan Discussed case with Dr. Acosta who advised on plan. - recommend setting patient up for an EGD tomorrow 09/12 for further evaluation of melena/anemia. she is agreeable. - recommend outpatient colonoscopy. she is agreeable to have done as outpatient. - suspect that her transaminitis is related to etoh use. her lfts are trending down since admission. she tells me she has 4-5 alcoholic drinks a day but per other notes in chart, she has admitted to more. - we discussed that she needs to work on cutting back on her ETOH use and eventually ceasing use. - avoid nsaids. - continue with protonix 40mg IV bid. - continue to follow Hgb/hct. History of Present Illness Reason for Consultation: Iron deficiency anemia / positive blood in stool Requesting Physician: Alex De Los Santos MD Attending Physician: Alex De Los Santos History of Present Illness Patient is a 47 year old female with a past medical history of alcohol abuse, hypertension, depression, GERD, tobacco use who presented to the ED after sh had outpatient labs showing low hgb. She tells me that 2 weeks ago she had 2 episodes of dark stools but has not had any since. She admits to using nsaids once a month but otherwise not regularly. During evaluation she was also found to have elevated LFTs. She admits to 4-5 alcoholic beverages a day. she denies drug use. no family history of liver disease. CT 09/09 with hepatic steatosis, steatohepatitis cannot be excluded. hepatitis panel is pending. LFTs as per below. She denies any nausea, vomiting, heartburn, dysphagia, abdominal pain, unintentional weight loss, or brbpr. she tells me she has never had a colonoscopy or EGD. 09/09 hgb 7.0 09/10 hgb 7.7. repeat hgb 8.3; AST 118, ALT 61, alk phos 178, t bili 0.4. 09/11 hgb 8.6; AST 84, ALT 47, Alk phos 171, t bili 0.4 Allergies Allergy/AdvReac Type Severity Reaction Status Date / Time bee venom protein (honey bee) Allergy Verified 09/09/22 07:53 No Known Drug Allergies Allergy Verified 09/09/22 07:53 Home Medications Medication Instructions Recorded Confirmed Type diphenhydramine HCl 25 mg capsule 25 mg PO HS PRN Sleep 02/27/21 09/09/22 History (Benadryl) omeprazole 20 mg capsule,delayed 20 mg PO DAILY #90 caps 05/06/22 09/09/22 Rx release bupropion HCl 100 mg tablet,12 hr 100 mg PO BID #180 ea 09/09/22 09/09/22 Rx sustained-release (Wellbutrin SR) Patient History Medical History Acid reflux Tobacco use Surgical History History of cryosurgery Family History Mother Lung cancer Throat cancer Cervical cancer, Onset Age: 64 Father Atrial fibrillation Sister Known health problems: none Sister No problems noted. Daughter No problems noted. Denies family history of Colon cancer Ovarian cancer Prostate cancer Myocardial infarction Breast cancer Uterine cancer Social History Smoking Status: Current every day smoker Tobacco Type: Cigarettes Age Started Using Tobacco: 28; packs per day: 1; Second Hand Exposure: Yes; Do You Dip or Chew Tobacco: No; Tobacco Cessation Education Requested by Patient: No Hx Alcohol Use: Yes Alcohol type: beer Alcohol Intake Frequency: Monthly or Less Hx Substance Use: No Preferred Language: Portuguese Communication Ability: Effective Visual Impairment: No Limitations Hearing Ability: Normal Analytical Consultant Required: No Beliefs That Will Affect Care: None marital status: Current Living Situation: Family current occupational status: employed 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 Other Information That Helps Us Care for You: No Feels Safe at Home: Yes Safety Concerns: Feels Safe At This Time Childhood Exposure to Second-Hand Smoke: Yes Diet: regular Diet Comment: regular caffeine: Yes during the past year weight has: remained stable Dental Care, Regularly: Yes Physical Activity Frequency: 1-2 Times per Week Seatbelt Use: always Sunscreen Use: No Assistive Devices: None Review of Systems Review of Systems: All systems reviewed & are unremarkable except as noted in Subjective Physical Exam Constitutional: WD/WN, vitals as above Respiratory: normal respiratory effort, lungs clear to auscultation Cardiovascular: RRR, no murmur, no edema Gastrointestinal (Abdomen): normal bowel sounds, soft, nontender, no hepatosplenomegaly Skin: no rashes, warm and dry Psychiatric: Orientation: alert and oriented x 3 Results & Data Vital Signs (Past 12 Hours) Vital Signs Temp Pulse Pulse Resp BP BP Pulse Ox 09/11/22 08:00 97.3 F L 100 H 16 163/103 H 98 09/11/22 03:01 98.2 F 98 H 18 137/94 95 09/10/22 22:00 96 H 09/10/22 22:49 97.9 F 93 H 18 151/96 H 96 O2 Del Method 09/11/22 08:00 Room Air 09/11/22 03:01 Room Air 09/10/22 22:00 09/10/22 22:49 Room Air Diagnostic Findings CT abd pelvis IV con only CLINICAL HISTORY: anemia, elevated LFTs TECHNIQUE: Helical axial images of the abdomen and pelvis were obtained and di splayed. Automated dose lowering techniques and/or adjustment according to patient size were utilized for this exam. This exam was performed with intravenous contrast. CT DOSE: 1036.75 mGy.cm COMPARISON: Comparison is made to pelvic ultrasound 03/24/2019 FINDINGS: Lower chest: No acute abnormality. Liver: Hepatic steatosis is noted. Gallbladder and biliary tree: No calcified gallstones. Normal caliber wall. No intra- or extrahepatic biliary ductal dilation. Pancreas: Unremarkable, no focal lesions. Spleen: Unremarkable. Adrenals: Unremarkable. Kidneys and ureters: Unremarkable. Bladder: Prominence of the bladder is seen. Reproductive organs: Unremarkable. Bowel: Unremarkable. Lymph nodes Retroperitoneal: Unremarkable. Pelvic: Unremarkable. Mesenteric: Unremarkable. Peritoneum: Normal. Vessels: Atherosclerotic calcifications are seen. Abdominal wall: Unremarkable. Bones: Degenerative changes in the visualized spine. IMPRESSION: Hepatic steatosis is seen, steatohepatitis cannot be excluded. Otherwise no acute abnormalities. ACT 112: Negative or not required by law. Electronically signed by: Wes Tse M.D. 09/09/2022 3:49 PM PG Care Time/CCT Total # of Minutes Spent Total Time Spent with Patient: Total time spent is greater than 50% in coordination of care (as documented) at patient's floor/unit and/or counseling patient: Coding Level of Care Code 83273 IN/OBS CONSULT LVL 3,45M Diagnoses Transaminitis R74.01 Alcohol abuse F10.10 Anemia D64.9 Melena K92.1 Time Spent (min) 48
[2022-09-11] MEDS: IRON SUCROSE 300 MG in SODIUM CHLORIDE 0.9% 250 ML IV SCH (10:49)
[2022-09-11] MEDS: NICOTINE POLACRILEX 2 MG GUM MT PRN (11:45)
[2022-09-11] MEDS ORDERED: LORazepam 2 MG/1 ML VIAL IV STA ×3 (13:54→19:22)
[2022-09-11] MEDS ORDERED: LORazepam 2 MG/1 ML VIAL IV PRN ×2 (13:55)
[2022-09-11] MEDS ORDERED: chlordiazePOXIDE ALCOHOL WITHDRAWL 50MG PO STA (13:55)
[2022-09-11] MEDS ORDERED: Ativan IV Alcohol Withdrawal--Active Protocol IV PRN (13:55)
[2022-09-11 13:58] LABS: HBSAG NON-REACTIVE (NON-REACTIVE); Hepatitis A Antibody IgM NON-REACTIVE (NON-REACTIVE); Hepatitis B Core Antibody IgM NON-REACTIVE (NON-REACTIVE)
[2022-09-11] MEDS ORDERED: chlordiazePOXIDE HCl 25 MG CAP PO SCH (16:30)
[2022-09-11] MEDS ORDERED: STAT IV Infusion **Titration per Protocol STA (20:04)
[2022-09-11] MEDS: LORazepam 2 MG/1 ML VIAL IV STA ×2 (20:15→20:36)
[2022-09-11] MEDS: dexMEDEtomidine 200 MCG/50 ML BAG IV SCH ×2 (20:43→23:46)
--- NOTE | 2022-09-11 20:59 | Critical Care Consultation ---
Date of Consultation September 11, 2022 Assessment & Plan (1) Delirium tremens: Reason Critically Ill: 47-year-old female presents to the ICU with refractory DTs from alcohol withdrawal, and GI bleeding with anemia requiring blood transfusions and plan for EGD tomorrow. Neuro - Delirium tremenssecondary to alcohol abuse. Patient received multiple doses of IV Ativan and ultimately required Precedex drip and transferred to ICU. We will continue with IV Ativan in addition to Precedex drip as monotherapy of Precedex drip would not be recommended due to risk for seizures. - Continue JULIET S scale. We will hold on Librium for now - Continue thiamine, folic acid Nicotine usecontinue nicotine patch Cardiac - Tachycardiasuspect this is likely secondary to alcohol withdrawal. Patient with sinus tachycardia in the low 100s. She is currently hemodynamically stable. Continued monitoring on telemetry Respiratory - No history of pulmonary disease. Maintaining oxygen saturation on room air. Monitor GI - Transaminitis Patient with elevated LFTs now trending down. Hepatic steatosis seen on CT abdomen and pelvis. Continue to trend for now Acute GI bleedpatient with 1 week history of melena and positive Hemoccult with anemia requiring blood transfusion. -GI following and plan for EGD tomorrow - Continue Protonix twice daily RENAL/LYTES - Monitor routine BMPs and replete electrolytes as indicated Hyponatremia improving - Strict I's and O's ENDO - No history of diabetes or thyroid disease. ICU hyperglycemic protocol HEME - Anemialikely multifactorial and patient with GI bleeding, malnutrition, and alcoholism - Iron 10, TIBC 310, UIBC 300, transferrin saturation 3% - Transfuse for hemoglobin less than 7.0. At this point she has required 1 unit RBCs since admission -Coags within normal limits - Continue iron infusions ID - No indication for infectious process at this time LINES/IV ACCESS - Peripheral IVs DVT PROPHYLAXIS - SCDs, hold anticoagulation in the setting of GI bleeding I have personally spent 45 minutes of critical care time in the direct management of this patient. This is a life/limb threatening event. This includes time spent evaluating patient, direct bedside care, chart review, placing orders, interpretation of diagnostic studies, discussion with consultants, patient, and family members, as well as other required patient management activities. This time is exclusive of all separately billable procedures, and teaching time and separate from and in addition to any other critical care service time. Thank you for allowing us to participate in the care of this patient. Please refer to my attending physician's documentation for any further recommendations. (2) Alcohol abuse: (3) Acid reflux: (4) GI bleed: (5) Melena: (6) Anemia: (7) Transaminitis: (8) Depression: History of Present Illness Attending Physician: Alex De Los Santos History of Present Illness Patient is a 47-year-old female with past medical history of anxiety and depression, tobacco abuse, GERD, alcohol abuse who presented to the emergency department on 09/09 with reports of tarry stools x1 week, lightheadedness and dizziness. And reported alcohol use of 3-4 beers per day. In the emergency department the patient was found to be anemic with a hemoglobin of 6.5 and had positive Hemoccult. She received 1 unit of blood and was admitted to PCU. Patient began to have evidence of alcohol withdrawal and was started on IV Ativan and Librium. GI consulted and plan for EGD tomorrow. This evening the patient has displayed worsening delirium tremens despite IV Ativan. I was informed by the primary team that the patient has received 11 mg of Ativan over the past 2 hours and continues to have significant symptoms of withdrawal. Patient is now being transferred to ICU for addition of Precedex drip for refractory DTs. Allergies Allergy/AdvReac Type Severity Reaction Status Date / Time bee venom protein (honey bee) Allergy Verified 09/09/22 07:53 No Known Drug Allergies Allergy Verified 09/09/22 07:53 Home Medications Medication Instructions Recorded Confirmed Type diphenhydramine HCl 25 mg capsule 25 mg PO HS PRN Sleep 02/27/21 09/09/22 History (Benadryl) omeprazole 20 mg capsule,delayed 20 mg PO DAILY #90 caps 05/06/22 09/09/22 Rx release bupropion HCl 100 mg tablet,12 hr 100 mg PO BID #180 ea 09/09/22 09/09/22 Rx sustained-release (Wellbutrin SR) Patient History Medical History Acid reflux Tobacco use Surgical History History of cryosurgery Family History Mother Lung cancer Throat cancer Cervical cancer, Onset Age: 64 Father Atrial fibrillation Sister Known health problems: none Sister No problems noted. Daughter No problems noted. Denies family history of Colon cancer Ovarian cancer Prostate cancer Myocardial infarction Breast cancer Uterine cancer Social History Smoking Status: Current every day smoker Tobacco Type: Cigarettes Age Started Using Tobacco: 28; packs per day: 1; Second Hand Exposure: Yes; Do You Dip or Chew Tobacco: No; Tobacco Cessation Education Requested by Patient: No Hx Alcohol Use: Yes Alcohol type: beer Alcohol Intake Frequency: Monthly or Less Hx Substance Use: No Preferred Language: Maltese Communication Ability: Effective Visual Impairment: No Limitations Hearing Ability: Normal Administrative Assistant Coordinator Required: No Beliefs That Will Affect Care: None marital status: Current Living Situation: Family current occupational status: employed 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 Other Information That Helps Us Care for You: No Feels Safe at Home: Yes Safety Concerns: Feels Safe At This Time Childhood Exposure to Second-Hand Smoke: Yes Diet: regular Diet Comment: regular caffeine: Yes during the past year weight has: remained stable Dental Care, Regularly: Yes Physical Activity Frequency: 1-2 Times per Week Seatbelt Use: always Sunscreen Use: No Assistive Devices: None Review of Systems Review of Systems: Patient denies headache, dizziness, shortness of breath, cough, Hemoptysis, chest pain or palpitations, abdominal pain, nausea or vomiting, diarrhea, swelling in hands and feet, generalized pain. Physical Exam Constitutional: WD/WN, vitals as above + thin and + altered mental status; + uncooperative Eyes: PERRL, conjunctivae normal, anicteric sclerae ENMT: external ear and nose normal, oropharynx normal Neck: trachea midline, no thyromegaly Respiratory: normal respiratory effort, lungs clear to auscultation Cardiovascular: Rate/Rhythm: regular rate and + tachycardic Heart Sounds: normal S1 and normal S2 Vessels: no JVD Extremities: no edema Gastrointestinal (Abdomen): normal bowel sounds, soft, nontender, no hepatosplenomegaly Musculoskeletal: no cyanosis or clubbing, extremities motor strength 5/5 Skin: no rashes, warm and dry Neurologic: PERRL, EOMI, accommodation nl, no face palsy, no dysarthria + confused Motor/Sensory: + tremor Psychiatric: Orientation: oriented to person; + not oriented to place, + not oriented to time and + uncooperative Results & Data Results & Data Vital Signs (Past 12 Hours) Vital Signs Temp Pulse Pulse Resp BP Pulse Ox O2 Del Method 09/11/22 19:39 116 H 18 162/98 H 96 Room Air 09/11/22 17:50 36.8 C 94 H 18 133/88 99 Room Air 09/11/22 16:20 36.8 C 107 H 18 128/85 97 Room Air 09/11/22 15:41 99 H 09/11/22 14:00 36.4 C 99 H 18 136/90 100 Room Air 09/11/22 11:27 36.8 C 90 18 128/87 97 Room Air Coding Level of Care Code 82482 CRITICAL CARE 1ST 30-74M Diagnoses Delirium tremens F10.931 Alcohol abuse F10.10 Acid reflux K21.9 GI bleed K92.2 Melena K92.1 Anemia D64.9 Transaminitis R74.01 Depression F32.A
--- NOTE | 2022-09-11 22:39 | Hospitalist Progress Note ---
Date of Service September 11, 2022 Assessment & Plan (1) Delirium tremens: Plan: Despite receiving librium taper, started on 09/10, restarted on 09/11, and gving 11 mg of ativan within 90 minutes. Patient was still tachycardic, confused, and trying to walk out of the room. Precedex was ordered, transfer was placed to the ICU. Informed Intesnivist midlevel of transfer, and informed overnight resident. At bedside during ativan administration. (2) GI bleed: Plan: Symptomatic anemia Hemoglobin initially 7.0, recheck 6.5 - Hemoglobin was 13.4 in 2019, hemoglobin on initial ER evaluation 7.0 on recheck 6.5 while in ER. MCV is microcytic at 76.1. Patient is hyponatremic at 129, creatinine 0.45. Patient did have some lightheadedness and dizziness prior to admission and reports a few episodes intermittently in the preceding months. Has not had chest pain, chest pressure, shortness of breath, difficulty breathing at any point. Uses a push mower without chest pain baseline. No syncope Transferrin saturation 3% with Hemoccult positive stool, patient endorses melena intermittently over the last week. No melena prior to this. BUN is not elevated Patient is mentating normally, MCV 76, suspect that this is a slow chronic bleed +/- nutritional insufficiency rather than acute bleeding. Does have a history of GERD, although no epigastric tenderness on evaluation. Transfuse to threshold of 7.0, H&H pending post 1 unit of blood which has been ordered Blood work is pointing towards iron deficiency anemia. consult GI: plan to scope on 09/12 Patients hemoglobin appears stable. Will continue to monitor hemoglobin. Iron 10, TIBC 310, UIBC 300, transferrin saturation 3% High-sensitivity troponin is normal at 8.2 Occult blood positive stool, intermittent dark stool in the last week. No prior melena. CTA/P with IV contrast: Hepatic steatosis, no other acute abnormalities. No evidence of extravasation/ EKG: Normal sinus rhythm, QTc 459, no acute ischemic changes (3) Chronic anemia: (4) Melena: (5) Alcohol abuse: Plan: Transaminitis suspect from alcohol use Patient with increased alcohol for at least 2 months, patient reports she drinks 3 to 5 days/week ranging from 4-10 beers per sitting. Last drink evening of 09/08 Patient is with transaminitis AST 160, ALT 75, alk phos 207. Total bilirubin is normal CT as noted with hepatic steatosis No prior history of withdrawal, no stretches more than 4 days alcohol free in the preceding 2 months AVSS ordered Thiamine high-dose protocol ordered, folic acid ordered Banana bag deferred while patient is receiving blood. Hepatitis acute panel pending -counseling discussed with patient. -will continue to monitor. -placed on benzo taper dose. Hyponatremia Sodium 129, mild Suspect solute depletion IVF M as above, trend BMP. If sodium downtrending, will fluid restrict and obtain urine sodium/urine osmolality/serum osmolality. If sodium improves/normalizes following fluids defer these. BMP in 6 hours ordered (6) Tobacco use: Plan: on nicotine patch (7) Acid reflux: Plan: GERD Omeprazole converted to PPI bolus and twice daily push as noted Patient has no epigastric tenderness on exam but has had melena (8) Depression: Plan: Anxiety/depression Bupropion held while n.p.o. Admission and Anticipated Discharge Date Admission Date: September 09, 2022 Subjective Patient is confused and asking to smoke a cigarrette. Review of Systems Review of Systems: All systems reviewed & are unremarkable except as noted in HPI & below Physical Exam Physical Exam: General: A&Ox3. NAD. Cooperative. HEENT: Atraumatic, normocephalic. Vision/hearing intact Pulm: CTAB A&P. -wheezes, -rales, -rhonchi. Symmetrical chest rise. No increased work of breathing. No respiratory distress. Cardiac: tachycardic Abdominal: Nontender, nondistended, soft. BS present. Specific there is no epigastric tenderness on exam Extremities: Warm, dry. Distal extremity strength and sensation is intact and symmetrical. Psych: unable to explain why in hospital, Results & Data Results & Data Vital Signs (Past 12 Hours) Vital Signs Temp Pulse Pulse Resp BP BP Pulse Ox 09/11/22 22:00 78 20 117/79 94 09/11/22 21:01 96 H 24 122/77 96 09/11/22 20:43 98 H 23 158/100 H 97 09/11/22 19:39 116 H 18 162/98 H 96 09/11/22 17:50 36.8 C 94 H 18 133/88 99 09/11/22 16:20 36.8 C 107 H 18 128/85 97 09/11/22 15:41 99 H 09/11/22 14:00 36.4 C 99 H 18 136/90 100 09/11/22 11:27 36.8 C 90 18 128/87 97 O2 Del Method 09/11/22 22:00 09/11/22 21:01 09/11/22 20:43 09/11/22 19:39 Room Air 09/11/22 17:50 Room Air 09/11/22 16:20 Room Air 09/11/22 15:41 09/11/22 14:00 Room Air 09/11/22 11:27 Room Air PG Care Time/CCT Total # of Minutes Spent Total Time Spent with Patient: Total time spent is greater than 50% in coordination of care (as documented) at patient's floor/unit and/or counseling patient: Prolonged Care Time Prolonged Care Time: Yes Total Prolonged Care Time: 90 total time was 90 minutes. 11:20 to 11:25 13:50 to 14:00 18:45 to 20:00 Critical Care Time: Yes Total Critical Care Time: 35 This is a life threatening emergency. Coding Level of Care Code 25130 SUB INP/OBS CARE 3/50MIN (25 - SIGNIFICANT, SEPARATELY IDENTIFIABLE ) Diagnoses Delirium tremens F10.931 GI bleed K92.2 Chronic anemia D64.9 Melena K92.1 Alcohol abuse F10.10 Tobacco use Z72.0 Acid reflux K21.9 Depression F32.A Additional Codes Critical Care Time - Critical Care Time: Yes ([id number]) Prolonged Care Time - Prolonged Care Time: Yes ([id number])
[2022-09-12 05:07] LABS: Basophils # (auto) 0.03 K/uL (0-0.2); Basophils % (auto) 0.7 %; Eosinophils # (auto) 0.17 K/uL (0-0.50); Hematocrit (blood only) 23.8 % (37.0-47.0); Hemoglobin 7.6 g/dl (12.0-16.0); Immature Granulocytes # (auto) 0.03 K/uL (0.01-0.20); Immature Granulocytes % (auto) 0.7 %; Lymphocytes # (auto) 1.13 K/uL (1.2-3.4); Lymphocytes % (auto) 26.3 %; Mean Corpuscular Hemoglobin 25.1 pg (25.0-34.0); Mean Corpuscular Hgb Conc 31.9 g/dL (32.0-36.0); Mean Corpuscular Volume 78.5 fL (80.0-100.0); Mean Platelet Volume 9.7 fL (9.4-12.4); Monocytes # (auto) 0.87 K/uL (0.11-0.59); Monocytes % (auto) 20.3 %; Neutrophils # (auto) 2.06 K/uL (1.40-6.50); Platelet Count 150 K/uL (130-400); RDW Coefficient of Variation 18.3 % (11.5-14.5); RDW Standard Deviation 52.2 fL (36.4-46.3); Red Blood Count 3.03 M/uL (4.20-5.40); White Blood Count 4.29 K/ul (4.8-10.8)
[2022-09-12 05:25] LABS: Albumin Globulin Ratio 0.7 (0.9-2); Albumin Level 2.4 gm/dl (3.4-5.0); BUN Creatinine Ratio 7.3 (10-20); Bilirubin,Total 0.3 mg/dl (0.2-1.0); Calcium 7.9 mg/dl (8.6-10.3); Creatinine Clr Calc Pharmacy 143.3 ml/min; Est GFR (African American) 140.6 ml/min; Est GFR (Non-African American) 121.3 ml/min; Globulin 3.5 gm/dl (2.5-4.0); Potassium 2.9 mmol/L (3.5-5.1); Total Protein 5.9 gm/dl (6.0-8.3)
[2022-09-12 05:35] LABS: Polychromasia 2+
[2022-09-12] MEDS ORDERED: POTASSIUM CHLORIDE 20 MEQ/15 ML UDC PO STA (06:20)
[2022-09-12 06:49] LABS: Magnesium 1.5 mg/dl (1.7-2.4); Phosphorus 4.7 mg/dl (2.5-4.9)
[2022-09-12] MEDS: POTASSIUM CHLORIDE / WTR 10 MEQ/100 ML PLCT IV SCH ×4 (07:29→10:28)
[2022-09-12] MEDS: dexMEDEtomidine 200 MCG/50 ML BAG IV SCH ×5 (07:29→20:06)
[2022-09-12] MEDS: LORazepam 2 MG/1 ML VIAL IV PRN ×2 (07:29→21:33)
[2022-09-12] MEDS: NICOTINE 21 MG/24 HR TDSY TD SCH (07:30)
[2022-09-12] MEDS: IRON SUCROSE 300 MG in SODIUM CHLORIDE 0.9% 250 ML IV SCH (07:32)
[2022-09-12] MEDS: THIAMINE HCL 100 MG in SYRINGE 9 ML IV SCH (07:32)
[2022-09-12] MEDS: PANTOprazole 40 MG in SYRINGE 0 ML IV SCH ×2 (07:32→21:51)
[2022-09-12] MEDS: FOLIC ACID 1 MG in SYRINGE 9.8 ML IV SCH (07:32)
--- NOTE | 2022-09-12 07:39 | Hospitalist Progress Note ---
Date of Service September 12, 2022 Assessment & Plan (1) Delirium tremens: Plan: acute uncontrolled, secondary to alcohol abuse, required transfer to ICU, precedex and ativan (2) GI bleed: Plan: Acute Symptomatic anemia uncontrolled Hemoglobin initially 7.0, recheck 6.5 -suspect GI blood loss, transfused 1 unit PRBC Protonix 40 mg bid chronic Iron deficiency, acute on chronic likely GI losses are more chronic, once stable begin iron replacement consult GI: plan to scope on 09/12 CTA/P with IV contrast: Hepatic steatosis, no other acute abnormalities. No evidence of extravasation/ (3) Alcohol abuse: Plan: acute Transaminitis suspect from alcohol use DT and acute alcohol withdrawal Thiamine high-dose protocol ordered, folic acid ordered Hepatitis acute panel pending Hyponatremia, replete hypokalemia hypomagnesemia I will replete but since were profound we will need to follow closely (4) Tobacco use: Plan: chronic, councelling offered, on nicotine patch (5) Depression: Plan: Anxiety/depression Bupropion held Admission and Anticipated Discharge Date Admission Date: September 09, 2022 Subjective pt seen in the presence of her family , wants to do outpt alcohol treatment, is still shakey, slighlty sedated Physical Exam Physical Exam: Patient has a sallow darkened skin tone She is slightly sedate slurring some words visit some intention tremor Card exam is regular lungs are clear abdomen NABS soft and nontender Results & Data Results & Data Vital Signs (Past 12 Hours) Vital Signs Temp Pulse Pulse Resp BP BP Pulse Ox 09/12/22 04:00 98.6 F 09/12/22 00:00 78 09/12/22 04:00 67 22 108/70 89 L 09/12/22 04:00 108/70 09/12/22 03:00 74 24 132/86 90 09/12/22 02:00 75 21 132/89 94 09/12/22 01:00 77 25 H 123/83 91 09/12/22 00:00 78 23 125/81 91 09/11/22 23:00 78 21 120/76 91 09/11/22 20:43 98.0 F 09/11/22 22:00 78 20 117/79 94 09/11/22 21:01 96 H 24 122/77 96 09/11/22 20:43 98 H 23 158/100 H 97 09/11/22 19:39 116 H 18 162/98 H 96 O2 Del Method 09/12/22 04:00 09/12/22 00:00 09/12/22 04:00 Room Air 09/12/22 04:00 09/12/22 03:00 09/12/22 02:00 09/12/22 01:00 09/12/22 00:00 09/11/22 23:00 09/11/22 20:43 09/11/22 22:00 09/11/22 21:01 09/11/22 20:43 09/11/22 19:39 Room Air Laboratory Results Reviewed CBC Reviewed PRP PG Care Time/CCT Total # of Minutes Spent Total Time Spent with Patient: Total time spent is greater than 50% in coordination of care (as documented) at patient's floor/unit and/or counseling patient: Coding Level of Care Code 87948 SUB INP/OBS CARE 2/35MIN Diagnoses Delirium tremens F10.931 GI bleed K92.2 Alcohol abuse F10.10 Tobacco use Z72.0 Depression F32.A
[2022-09-12] MEDS: MAGNESIUM SULFATE / D5W 1 GM/100 ML BAG IV SCH ×2 (08:16→09:27)
--- NOTE | 2022-09-12 09:24 | History & Physical Bridge Note ---
Date of Service September 12, 2022 History & Physical Bridge Note I have examined the patient, reviewed the History & Physical and in the interval since the performance of the History & Physical I have noted the following changes of clinical significance: no changes noted. Last evening 09/11 patient had developed DTs and was transferred to the ICU. Patient currently sedated and getting IV ativan and precedex drip. Patient currently resting comfortably in bed. spoke with daughter at bedside, she was unaware of any other events. Daughter expressed that the patient has been a heavy drinker for several decades. discussed with nursing, patient was more awake this morning, went to the restroom to urinate without issues. no further bowel movements prior to yesterday. no complaints of nausea. no emesis. hgb dropped from 8.6 to 7.6 since yesterday. Planned for EGD today.
--- NOTE | 2022-09-12 09:47 | Critical Care Progress Note ---
Date of Service September 12, 2022 Assessment & Plan (1) Delirium tremens: Plan: Reason Critically Ill: 47-year-old female presents to the ICU with refractory DTs from alcohol withdrawal, and GI bleeding with anemia requiring blood transfusions and plan for EGD in near future. Neuro - Delirium tremenssecondary to alcohol abuse. Patient received multiple doses of IV Ativan and ultimately required Precedex drip and transferred to ICU. - Transition to phenobarb - Continue thiamine, folic acid Nicotine usecontinue nicotine patch Cardiac - Tachycardiaresolved Respiratory - No history of pulmonary disease. Maintaining oxygen saturation on room air. Monitor GI - Transaminitis Patient with elevated LFTs now trending down. Hepatic steatosis seen on CT abdomen and pelvis. Continue to trend for now Acute GI bleedpatient with 1 week history of melena and positive Hemoccult with anemia requiring blood transfusion. -GI following and plan for EGD in near future - Continue Protonix twice daily RENAL/LYTES - Hyponatremia Resolved Hypokalemia: currently replacing - Strict I's and O's ENDO - No history of diabetes or thyroid disease. ICU hyperglycemic protocol HEME - Anemialikely multifactorial and patient with GI bleeding, malnutrition, and alcoholism - Iron 10, TIBC 310, UIBC 300, transferrin saturation 3% - Transfuse for hemoglobin less than 7.0. At this point she has required 1 unit RBCs since admission -Coags within normal limits - Recieved IV iron. - transition to oral iron when able to take PO medications ID - No indication for infectious process at this time LINES/IV ACCESS - Peripheral IVs DVT PROPHYLAXIS - SCDs, hold anticoagulation in the setting of GI bleeding I have personally spent 40 minutes of critical care time in the direct management of this patient. This is a life/limb threatening event. This includes time spent evaluating patient, direct bedside care, chart review, placing orders, interpretation of diagnostic studies, discussion with consultants, patient, and family members, as well as other required patient management activities. This time is exclusive of all separately billable procedures, and teaching time and separate from and in addition to any other critical care service time. (2) Alcohol abuse: (3) Acid reflux: (4) GI bleed: (5) Melena: (6) Anemia: (7) Transaminitis: (8) Depression: Admission and Anticipated Discharge Date Admission Date: September 09, 2022 Physical Exam Physical Exam: General: Sleeping in room Skin: Warm, dry, Head: Atraumatic Ears, nose, mouth and throat: airway patent Cardiovascular: Normal peripheral perfusion Respiratory: no respiratory distress Gastrointestinal: Non distended Musculoskeletal: No deformity Results & Data Results & Data Vital Signs (Past 12 Hours) Vital Signs Temp Pulse Resp BP Pulse Ox O2 Del Method 09/12/22 04:00 37.0 C 09/12/22 00:00 78 09/12/22 04:00 67 22 108/70 89 L Room Air 09/12/22 04:00 108/70 09/12/22 03:00 74 24 132/86 90 09/12/22 02:00 75 21 132/89 94 09/12/22 01:00 77 25 H 123/83 91 09/12/22 00:00 78 23 125/81 91 09/11/22 23:00 78 21 120/76 91 09/11/22 22:00 78 20 117/79 94 Coding Level of Care Code 60997 CRITICAL CARE 1ST 30-74M Diagnoses Delirium tremens F10.931 Alcohol abuse F10.10 Acid reflux K21.9 GI bleed K92.2 Melena K92.1 Anemia D64.9 Transaminitis R74.01 Depression F32.A
--- NOTE | 2022-09-12 11:08 | Anesthesiology Consultation ---
Date of Service September 12, 2022 Assessment & Plan Chart Review Chart Review: Acceptable Risk for Surgery Consults Requested none History Surgery Operation Date: 09/12/22 16:30 Proposed Procedures p Esophagogastroduodenoscopy Dr. Karla Acosta MD Height/Weight Height: 5 ft 4 in Weight: 54.8 kg Allergies Allergy/AdvReac Type Severity Reaction Status Date / Time bee venom protein (honey bee) Allergy Verified 09/12/22 10:52 No Known Drug Allergies Allergy Verified 09/12/22 10:52 Medications Home Medications Medication Instructions Recorded Confirmed Last Taken diphenhydramine HCl 25 mg capsule 25 mg PO HS PRN Sleep 02/27/21 09/09/22 Unknown (Benadryl) omeprazole 20 mg capsule,delayed 20 mg PO DAILY #90 caps 05/06/22 09/09/22 Unknown release bupropion HCl 100 mg tablet,12 hr 100 mg PO BID #180 ea 09/09/22 09/09/22 Unknown sustained-release (Wellbutrin SR) Active Medications Generic Name Dose Route Start Last Admin Trade Name Santiagoq PRN Reason Stop Dose Admin Pantoprazole Sodium 40 mg/ 10 mls @ 5 mls/min 09/09/22 21:00 09/12/22 07:32 Syringe IV 10/09/22 20:59 5 mls/min BID DIAMOND Administration Thiamine HCl 100 mg/ Syringe 10 mls @ 2 mls/min 09/10/22 09:00 09/12/22 07:32 IV 10/10/22 08:59 2 mls/min QAM DIAMOND Administration Folic Acid 1 mg/ Syringe 10 mls @ 5 mls/min 09/09/22 20:30 09/12/22 07:32 IV 10/09/22 20:29 5 mls/min QAM DIAMOND Administration Dexmedetomidine/Sodium Chloride 200 mcg in 50 mls @ 6.3 mls/hr 09/11/22 20:15 09/12/22 10:37 Precedex IV 09/15/22 20:14 0.5 mcg/kg/hr .Q7H57M DIAMOND 6.3 mls/hr Administration Protocol 0.5 MCG/KG/HR Magnesium Sulfate/Dextrose 1 gm in 100 mls @ 50 mls/hr 09/12/22 07:45 09/12/22 10:51 Magnesium Sulfate / D5w IV 09/12/22 11:44 Infused Q2H DIAMOND Infusion Lorazepam 2 mg 09/11/22 13:55 09/12/22 07:29 Lorazepam 2 Mg/1 Ml Vial IV 10/11/22 13:54 2 mg UD PRN Administration EtOH Withdrawal AWSS Score 8,9 Protocol Lorazepam 1 mg 09/11/22 13:55 09/12/22 03:50 Lorazepam 2 Mg/1 Ml Vial IV 10/11/22 13:54 1 mg UD PRN Administration EtOH Withdrawal AWSS Score 6,7 Protocol Melatonin 3 mg 09/10/22 23:47 09/11/22 00:01 Melatonin 3 Mg Tab PO 10/10/22 23:46 3 mg HS PRN Administration Sleep Miscellaneous 1 each 09/10/22 08:59 09/12/22 07:29 Remove Nicoderm Patch N/A 10/10/22 08:58 1 each DAILY@0859 DIAMOND Administration Nicotine 21 mg 09/09/22 16:15 09/12/22 07:30 Nicotine 21 Mg/24 Hr Tdsy TD 10/09/22 16:14 21 mg QAM DIAMOND Administration Nicotine Polacrilex 1 piece 09/11/22 11:26 09/11/22 11:45 Nicotine Polacrilex 2 Mg Gum MT 10/11/22 11:25 1 piece PRN PRN Administration craving NPO Date Last Intake of Fluids: 09/11/22 Date Last Intake of Solids: 09/11/22 Past Medical History Medical History Acid reflux Tobacco use Past Family History Family History Mother Lung cancer Throat cancer Cervical cancer, Onset Age: 64 Father Atrial fibrillation Sister Known health problems: none Sister No problems noted. Daughter No problems noted. Denies family history of Colon cancer Ovarian cancer Prostate cancer Myocardial infarction Breast cancer Uterine cancer Past Surgical History Surgical History History of cryosurgery Social History Smoking Status: Current every day smoker tobacco type: cigarettes Do You Dip or Chew Tobacco: No Hx Alcohol Use: Yes Alcohol type: beer alcohol intake frequency: holidays/special occasions only Hx Substance Use: No Physical Exam Vital Signs Last Vital Signs Temp 36.7 C 09/12/22 10:53 Pulse 62 09/12/22 10:53 Resp 18 09/12/22 10:53 BP 124/86 09/12/22 10:53 Pulse Ox 96 09/12/22 10:53 O2 Del Method Room Air 09/12/22 10:53 O2 Flow Rate 0 09/09/22 19:02 Testing Laboratory Results 09/12/22 04:41 09/12/22 04:41 PT 10.9 Seconds (9.0-12.0) 09/09/22 14:21 INR 1.0 (0.9-1.1) 09/09/22 14:21 APTT 25.3 Seconds (21.0-31.0) 09/09/22 14:21 Urine Color Yellow 09/09/22 18:18 Urine Appearance Clear (Clear) 09/09/22 18:18 Urine pH 5.5 (4.5-7.5) 09/09/22 18:18 Ur Specific [place] 1.026 (1.000-1.030) 09/09/22 18:18 Urine Protein Negative (Negative) 09/09/22 18:18 Urine Glucose (UA) Negative (Negative) 09/09/22 18:18 Urine Ketones Negative (Negative) 09/09/22 18:18 Urine Nitrite Negative (Negative) 09/09/22 18:18 Ur Leukocyte Esterase Negative (Negative) 09/09/22 18:18 Blood Type A Negative 09/09/22 14:21 Antibody Screen NEGATIVE 09/09/22 14:21
[2022-09-12] MEDS ORDERED: LIDOCAINE 2% 2 ML VIAL/AMP(20MG/ML) INFIL ONE (11:56)
[2022-09-12] MEDS ORDERED: PROPOFOL IV EMULSION 10 MG/ML 20 ML VIAL IV ONE (11:56)
[2022-09-12] MEDS ORDERED: KETAMINE 50 MG/5 ML SYRINGE ONE (11:57)
--- NOTE | 2022-09-12 12:43 | GI REPORT ---
Patient Name: Sobeida Rondon Procedure Date: 09/12/2022 11:40 AM Date of : 1975 Admit Type: Inpatient Age: 47 Gender: Female Attending MD: Pastor Acosta MD, Procedure: Upper GI endoscopy Providers: Pastor Acosta MD Referring MD: Lalito Langford Indications: Unexplained iron deficiency anemia, Melena Medicines: Monitored Anesthesia Care Complications: No immediate complications. Estimated blood loss: None. Estimated Blood Loss: Estimated blood loss: none. Procedure: Pre-Anesthesia Assessment: - Prior Anticoagulants: The patient has taken no anticoagulant or antiplatelet agents. - ASA Grade Assessment: II - A patient with mild systemic disease. After obtaining informed consent, the endoscope was passed under direct vision. Throughout the procedure, the patient's blood pressure, pulse, and oxygen saturations were monitored continuously. The Endoscope was introduced through the mouth, and advanced to the second part of duodenum. The upper GI endoscopy was accomplished without difficulty. The patient tolerated the procedure well. Findings: The examined esophagus was normal. Diffuse mild inflammation characterized by erythema was found in the stomach. Biopsies were taken with a cold forceps for Helicobacter pylori testing. Estimated blood loss: none. The duodenal bulb and second portion of the duodenum were normal. Impression: - Normal esophagus. - Gastritis. Biopsied. - Normal duodenal bulb and second portion of the duodenum. Recommendation: - Return patient to [facility] for ongoing care. - Advance diet as tolerated today. - Await pathology results. -trend H/H, supportive care - outpatient colonoscopy Pastor Acosta MD 09/12/2022 12:42:48 PM This report has been signed electronically. Note Initiated On: 09/12/2022 11:40 AM Number of Addenda: 0 I attest to the content of the Intraoperative Record and orders documented therein, exceptions below {[id number]}
--- NOTE | 2022-09-12 12:52 | Anesthesiology Progress Note ---
Date of Service September 12, 2022 Anesthesia Post Procedure Vital Signs Vital Signs: Temp Pulse Pulse Resp BP BP BP 09/12/22 12:45 59 L 16 144/91 H 09/12/22 12:32 59 L 16 138/89 09/12/22 12:17 60 16 119/74 09/12/22 10:53 36.7 C 62 18 124/86 09/12/22 10:30 64 22 09/12/22 10:15 63 23 09/12/22 10:00 66 22 09/12/22 10:00 124/86 09/12/22 09:45 62 21 09/12/22 09:30 63 22 09/12/22 09:01 121/84 09/12/22 09:01 63 21 09/12/22 08:30 65 22 09/12/22 08:01 69 18 09/12/22 08:01 148/94 H 09/12/22 08:00 67 18 09/12/22 07:30 80 22 09/12/22 07:00 61 19 09/12/22 07:00 121/74 09/12/22 08:00 36.8 C 09/12/22 04:00 37.0 C 09/12/22 00:00 78 09/12/22 04:00 67 22 108/70 09/12/22 04:00 108/70 09/12/22 03:00 74 24 132/86 09/12/22 02:00 75 21 132/89 09/12/22 01:00 77 25 H 123/83 09/12/22 00:00 78 23 125/81 09/11/22 23:00 78 21 120/76 09/11/22 20:43 36.7 C 09/11/22 22:00 78 20 117/79 09/11/22 21:01 96 H 24 122/77 09/11/22 20:43 98 H 23 158/100 H 09/11/22 19:39 116 H 18 162/98 H 09/11/22 17:50 36.8 C 94 H 18 133/88 09/11/22 16:20 36.8 C 107 H 18 128/85 09/11/22 15:41 99 H 09/11/22 14:00 36.4 C 99 H 18 136/90 Pulse Ox O2 Del Method 09/12/22 12:45 94 Room Air 09/12/22 12:32 95 Room Air 09/12/22 12:17 97 Room Air 09/12/22 10:53 96 Room Air 09/12/22 10:30 93 09/12/22 10:15 92 09/12/22 10:00 91 09/12/22 10:00 09/12/22 09:45 92 09/12/22 09:30 92 09/12/22 09:01 09/12/22 09:01 92 09/12/22 08:30 93 09/12/22 08:01 95 09/12/22 08:01 09/12/22 08:00 96 Room Air 09/12/22 07:30 92 09/12/22 07:00 96 09/12/22 07:00 09/12/22 08:00 09/12/22 04:00 09/12/22 00:00 09/12/22 04:00 89 L Room Air 09/12/22 04:00 09/12/22 03:00 90 09/12/22 02:00 94 09/12/22 01:00 91 09/12/22 00:00 91 09/11/22 23:00 91 09/11/22 20:43 09/11/22 22:00 94 09/11/22 21:01 96 09/11/22 20:43 97 09/11/22 19:39 96 Room Air 09/11/22 17:50 99 Room Air 09/11/22 16:20 97 Room Air 09/11/22 15:41 09/11/22 14:00 100 Room Air Transfer of Care Handoff Completed per policy Notes Mental Status: alert / awake / arousable and participated in evaluation Patient Amnestic to Procedure: Yes Nausea / Vomiting: adequately controlled Pain: adequately controlled Airway Patency, RR, SpO2: stable & adequate BP & HR: stable & adequate Hydration State: stable & adequate Anesthetic Complications: no major complications apparent
[2022-09-12] MEDS ORDERED: chlordiazePOXIDE HCl 25 MG CAP PO SCH ×2 (16:00→16:30)
[2022-09-13 06:32] LABS: Basophils # (auto) 0.03 K/uL (0-0.2); Basophils % (auto) 0.7 %; Eosinophils # (auto) 0.12 K/uL (0-0.50); Eosinophils % (auto) 2.8 %; Hematocrit (blood only) 25.8 % (37.0-47.0); Hemoglobin 8.2 g/dl (12.0-16.0); Immature Granulocytes # (auto) 0.03 K/uL (0.01-0.20); Immature Granulocytes % (auto) 0.7 %; Lymphocytes # (auto) 1.13 K/uL (1.2-3.4); Lymphocytes % (auto) 26.5 %; Mean Corpuscular Hgb Conc 31.8 g/dL (32.0-36.0); Mean Corpuscular Volume 78.7 fL (80.0-100.0); Mean Platelet Volume 9.9 fL (9.4-12.4); Monocytes # (auto) 0.53 K/uL (0.11-0.59); Monocytes % (auto) 12.4 %; Neutrophils # (auto) 2.42 K/uL (1.40-6.50); Neutrophils % (auto) 56.9 %; Platelet Count 163 K/uL (130-400); RDW Coefficient of Variation 18.9 % (11.5-14.5); RDW Standard Deviation 53.5 fL (36.4-46.3); Red Blood Count 3.28 M/uL (4.20-5.40); White Blood Count 4.26 K/ul (4.8-10.8)
[2022-09-13 06:50] LABS: BUN Creatinine Ratio 8.2 (10-20); Calcium 8.1 mg/dl (8.6-10.3); Creatinine Clr Calc Pharmacy 119.9 ml/min; Est GFR (African American) 132.6 ml/min; Est GFR (Non-African American) 114.4 ml/min; Magnesium 1.9 mg/dl (1.7-2.4); Phosphorus 4.2 mg/dl (2.5-4.9); Potassium 3.5 mmol/L (3.5-5.1)
--- NOTE | 2022-09-13 07:42 | Hospitalist Progress Note ---
Date of Service September 13, 2022 Assessment & Plan (1) Delirium tremens: Plan: acute uncontrolled, secondary to alcohol abuse, required transfer to ICU, precedex and ativan tapered off Precedex on Patient downgraded from ICU to med telemetry she will be permitted to go outside with family and aide should be on Librium 10 mg 3 times daily and adjust tapering doses Screening strongly consider naltrexone therapy (2) Anemia: Plan: Acute Symptomatic anemia transfused 1 unit PRBC Protonix 40 mg bid Endoscopy performed on 12 September shows diffuse mild inflammation with erythema in the stomach duodenal bulb and second portion of duodenum were normal chronic Iron deficiency, acute on chronic likely GI losses are more chronic, once stable begin iron replacement orally once outpatient CTA/P with IV contrast: Hepatic steatosis, no other acute abnormalities. No evidence of extravasation/ (3) Alcohol abuse: Plan: acute Transaminitis suspect from alcohol use DT and acute alcohol withdrawal now resolving Thiamine high-dose protocol ordered, folic acid ordered Hepatitis acute panel pending Hyponatremia, replete hypokalemia hypomagnesemia these are now replete (4) Tobacco use: Plan: chronic, councelling offered, on nicotine patch (5) Depression: Plan: Anxiety/depression Bupropion held Admission and Anticipated Discharge Date Admission Date: September 09, 2022 Subjective Patient seen in the company of her there is no aversive behavior noted he seems supportive but we did discuss the fact that no mass to be likely alcohol free for her to succeed in alcohol cessation She continues to endorse her desires to enter outpatient rehab. Her father highlighted some reservation regarding a willpower approach and was hoping medication can be prescribed to aid in alcohol recovery. I directed them to follow-up with the primary care provider or possibly seek the advice of an addiction management specialist. We discussed naltrexone therapy and the benefit of going to inpatient rehab at this point time where still not completely out of alcohol withdrawal we will proceed with Librium tapering dosing Physical Exam Physical Exam: Awake alert appropriate less tremulous but still some minor tremor Card exam is tachycardic at times lungs are clear Extremities are still trace edema or upper extremity edema is likely related to some recent blood draws and Coban but she does still has trace lower extremity edema Results & Data Results & Data Vital Signs (Past 12 Hours) Vital Signs Pulse Resp BP Pulse Ox O2 Del Method 09/13/22 06:39 140/97 09/13/22 06:39 74 20 99 09/13/22 06:00 81 24 140/97 93 09/13/22 05:00 75 26 H 151/99 H 93 09/13/22 04:00 75 27 H 145/93 H 92 09/13/22 03:00 74 22 126/84 91 09/13/22 02:00 72 22 123/81 90 09/13/22 01:00 71 22 122/73 93 09/13/22 00:01 69 24 103/69 93 09/13/22 02:31 69 09/12/22 23:00 69 21 123/84 94 Room Air 09/12/22 22:00 69 18 107/81 98 Room Air 09/12/22 20:00 65 20 124/77 97 Laboratory Results Reviewed CBC reviewed PRP PG Care Time/CCT Total # of Minutes Spent Total Time Spent with Patient: Total time spent is greater than 50% in coordination of care (as documented) at patient's floor/unit and/or counseling patient: Coding Level of Care Code 10552 SUB INP/OBS CARE 2/35MIN Diagnoses Delirium tremens F10.931 Anemia D64.9 Alcohol abuse F10.10 Tobacco use Z72.0 Depression F32.A
[2022-09-13] MEDS: NICOTINE 21 MG/24 HR TDSY TD SCH (08:06)
[2022-09-13] MEDS: THIAMINE HCL 100 MG in SYRINGE 9 ML IV SCH (08:09)
[2022-09-13] MEDS: FOLIC ACID 1 MG in SYRINGE 9.8 ML IV SCH (08:09)
[2022-09-13] MEDS: PANTOprazole 40 MG in SYRINGE 0 ML IV SCH (08:09)
--- NOTE | 2022-09-13 09:34 | Communication Note ---
Date of Service: September 13, 2022 EGD 09/12/22 Gastritis. path pending. Patient alert and awake this morning. no further dark stools. Last seen these two weeks ago. she tells me she is feeling well. hgb improved from 7.6 to 8.2 today. she denies any nausea, vomiting, abdominal pain, heartburn. - I advise cessation of alcohol - avoid nsaids. - continue protonix 40mg bid at discharge. - will need outpatient colonoscopy.
--- NOTE | 2022-09-13 09:38 | Critical Care Progress Note ---
Date of Service September 13, 2022 Assessment & Plan (1) Delirium tremens: Plan: Reason Critically Ill: 47-year-old female presents to the ICU with refractory DTs from alcohol withdrawal, and GI bleeding with anemia requiring blood transfusions and plan for EGD in near future. Neuro - Delirium tremenssecondary to alcohol abuse. Improved. - Continue thiamine, folic acid orally Staff relayed anonymous report of concern of possible non-accidental poisoning by third republican. No report of type of substance. Patient did not exhibit any particular clinical toxidrome, no point did the patient have an elevated anion gap, and coagulation profile was always within normal limits. Nicotine usecontinue nicotine patch Cardiac - Tachycardiaresolved Respiratory - No history of pulmonary disease. Maintaining oxygen saturation on room air. Monitor GI - Transaminitis Improving, hepatitis panel negative Acute GI bleedpatient with 1 week history of melena and positive Hemoccult with anemia requiring blood transfusion. - Unremarkable for acute bleeding source - Continue Protonix twice daily - No further evidence of active bleeding. Outpatient colonoscopy RENAL/LYTES - Hyponatremia Resolved Hypokalemia: resolved ENDO - No history of diabetes or thyroid disease. ICU hyperglycemic protocol HEME - Anemialikely multifactorial and patient with GI bleeding, malnutrition, and alcoholism: improving - Feosol and vitamin C every morning - Coags within normal limits - Recieved IV iron. ID - No indication for infectious process at this time LINES/IV ACCESS - Peripheral IVs DVT PROPHYLAXIS - Patient ambulatory, chemoprophylaxis: lovenox Stable for downgrade from ICU (2) Alcohol abuse: (3) Acid reflux: (4) GI bleed: (5) Melena: (6) Anemia: (7) Transaminitis: (8) Depression: Admission and Anticipated Discharge Date Admission Date: September 09, 2022 Subjective Precedex turned off overnight. Receiving symptom triggered triggered ativan, received one dose overnight. Discussed history and characteristics of alcohol use this occurred in presence of father who patient reported she was comfortable discussing topics with prior to questioning. Patient admits she has had issues surrounding the use of alcohol; however, it is her intention to abstain from alcohol moving forward. Her intention is upon hospital discharge to have someone present physically with her until her returns from work. She states she feels safe at home. She desires to enter outpatient rehab. Her father highlighted some reservation regarding a willpower approach and was hoping medication can be prescribed to aid in alcohol recovery. I directed them to follow-up with the primary care provider or possibly seek the advice of an addiction offender job retention specialist. We discussed programs such as Alcoholics Anonymous have one of the highest track records of success due to the multi modality approach including but not limited to positive community/sponsor interpersonal relationships as well as individuals willingness to engage in ongoing lifestyle changes (which in some cases need to be significant) over long-term. patient requesting being able to go outside of hospital and sit in sunshine. Physical Exam Physical Exam: General: Alert. nontoxic. Mild tremulousness Skin: Warm, dry, Head: Atraumatic Ears, nose, mouth and throat: airway patent Cardiovascular: Normal peripheral perfusion Respiratory: no respiratory distress Gastrointestinal: Non distended Musculoskeletal: No deformity Results & Data Results & Data Vital Signs (Past 12 Hours) Vital Signs Pulse Resp BP Pulse Ox O2 Del Method 09/13/22 06:39 140/97 09/13/22 06:39 74 20 99 09/13/22 06:00 81 24 140/97 93 09/13/22 05:00 75 26 H 151/99 H 93 09/13/22 04:00 75 27 H 145/93 H 92 09/13/22 03:00 74 22 126/84 91 09/13/22 02:00 72 22 123/81 90 09/13/22 01:00 71 22 122/73 93 09/13/22 00:01 69 24 103/69 93 09/13/22 02:31 69 09/12/22 23:00 69 21 123/84 94 Room Air 09/12/22 22:00 69 18 107/81 98 Room Air Critical Care Results & Data Vital Signs (Past 12 Hours) Vital Signs Pulse Resp BP Pulse Ox O2 Del Method 09/13/22 06:39 140/97 09/13/22 06:39 74 20 99 09/13/22 06:00 81 24 140/97 93 09/13/22 05:00 75 26 H 151/99 H 93 09/13/22 04:00 75 27 H 145/93 H 92 09/13/22 03:00 74 22 126/84 91 09/13/22 02:00 72 22 123/81 90 09/13/22 01:00 71 22 122/73 93 09/13/22 00:01 69 24 103/69 93 09/13/22 02:31 69 09/12/22 23:00 69 21 123/84 94 Room Air 09/12/22 22:00 69 18 107/81 98 Room Air Lab & Micro Results (Past 24 Hours) RBC 3.28 M/uL (4.20-5.40) L 09/13/22 WBC 4.26 K/ul (4.8-10.8) L 09/13/22 Hgb 8.2 g/dl (12.0-16.0) L 09/13/22 Hct 25.8 % (37.0-47.0) L 09/13/22 MCV 78.7 fL (80.0-100.0) L 09/13/22 MCH 25.0 pg (25.0-34.0) 09/13/22 MCHC 31.8 g/dL (32.0-36.0) L 09/13/22 RDW Standard Deviation 53.5 fL (36.4-46.3) H 09/13/22 RDW Coefficient of Variation 18.9 % (11.5-14.5) H 09/13/22 Plt Count 163 K/uL (130-400) 09/13/22 MPV 9.9 fL (9.4-12.4) 09/13/22 Neutrophils (%) (Auto) 56.9 % 09/13/22 Lymphocytes (%) (Auto) 26.5 % 09/13/22 Monocytes # (Auto) 0.53 K/uL (0.11-0.59) 09/13/22 Eosinophils # (Auto) 0.12 K/uL (0-0.50) 09/13/22 Immature Granulocyte % (Auto) 0.7 % 09/13/22 Neutrophils # (Auto) 2.42 K/uL (1.40-6.50) 09/13/22 Lymphocytes # (Auto) 1.13 K/uL (1.2-3.4) L 09/13/22 Monocytes # (Auto) 0.53 K/uL (0.11-0.59) 09/13/22 Eosinophils # (Auto) 0.12 K/uL (0-0.50) 09/13/22 Basophils # (Auto) 0.03 K/uL (0-0.2) 09/13/22 Immature Granulocyte # (Auto) 0.03 K/uL (0.01-0.20) 3 Na 136 mmol/L (136-145) 09/13/22 K 3.5 mmol/L (3.5-5.1) 09/13/22 Cl 107 mmol/L (98-107) 09/13/22 CO2 26 mmol/L (21-32) 09/13/22 Anion Gap 3 (3-11) 09/13/22 BUN 4 mg/dl (6-23) L 09/13/22 Creatinine 0.49 mg/dl (0.6-1.2) L 09/13/22 Estimated GFR ( Amer) 132.6 ml/min 09/13/22 Estimated GFR (Non-Af Amer) 114.4 ml/min 09/13/22 BUN/Creatinine Ratio 8.2 (10-20) L 09/13/22 Glu 79 mg/dl (70-99(Fasting)) 09/13/22 Ca 8.1 mg/dl (8.6-10.3) L 09/13/22 Phosphorus Level 4.2 mg/dl (2.5-4.9) 09/13/22 Mg 1.9 mg/dl (1.7-2.4) 09/13/22 06:10 Calcium Level 8.1 mg/dl (8.6-10.3) L 09/13/22 06:10 I & O Totals 24 Hours 09/12/22 09/13/22 09/14/22 06:59 06:59 06:59 Intake Total 3070.823 / 3070.823 1441.844 / 1441.844 Output Total 700 / 700 800 / 800 Balance 2370.823 / 2370.823 641.844 / 641.844 Cumulative 09/09/22 13:53 thru 09/13/22 06:15 Intake Total 88227.667 Output Total 2825 Balance 7342.667 RT Ventilator Mngmt (Last Documented) Ventilator Ordered Settings Respiratory Rate 20 09/13/22 06:39 Ventilator - PT Measurements Respiratory Rate 20 Coding Level of Care Code 46049 SUB INP/OBS CARE 3/50MIN Diagnoses Delirium tremens F10.931 Alcohol abuse F10.10 Acid reflux K21.9 GI bleed K92.2 Melena K92.1 Anemia D64.9 Transaminitis R74.01 Depression F32.A
[2022-09-13] MEDS: FERROUS SULFATE 325 MG/7.4 ML UDP PO SCH (10:26)
[2022-09-13] MEDS: ASCORBIC ACID 500 MG TAB PO SCH (10:26)
[2022-09-13] MEDS ORDERED: chlordiazePOXIDE HCl 25 MG CAP PO SCH (16:00)
[2022-09-13] MEDS: PANTOprazole 40 MG TAB PO SCH (20:19)
[2022-09-13] MEDS: dexMEDEtomidine 200 MCG/50 ML BAG IV SCH (21:22)
[2022-09-13] MEDS: MELATONIN 3 MG TAB PO PRN (22:06)
[2022-09-14 07:41] LABS: Basophils # (auto) 0.04 K/uL (0-0.2); Basophils % (auto) 0.7 %; Eosinophils % (auto) 1.9 %; Hematocrit (blood only) 22.8 % (37.0-47.0); Hemoglobin 7.2 g/dl (12.0-16.0); Immature Granulocytes # (auto) 0.07 K/uL (0.01-0.20); Immature Granulocytes % (auto) 1.3 %; Lymphocytes # (auto) 1.12 K/uL (1.2-3.4); Lymphocytes % (auto) 20.9 %; Mean Corpuscular Hemoglobin 24.7 pg (25.0-34.0); Mean Corpuscular Hgb Conc 31.6 g/dL (32.0-36.0); Mean Corpuscular Volume 78.1 fL (80.0-100.0); Mean Platelet Volume 9.9 fL (9.4-12.4); Monocytes # (auto) 1.03 K/uL (0.11-0.59); Monocytes % (auto) 19.2 %; Neutrophils # (auto) 3.01 K/uL (1.40-6.50); Platelet Count 175 K/uL (130-400); RDW Coefficient of Variation 19.8 % (11.5-14.5); RDW Standard Deviation 54.5 fL (36.4-46.3); Red Blood Count 2.92 M/uL (4.20-5.40); White Blood Count 5.37 K/ul (4.8-10.8)
[2022-09-14 07:50] LABS: BUN Creatinine Ratio 14.3 (10-20); Calcium 8.2 mg/dl (8.6-10.3); Creatinine Clr Calc Pharmacy 139.1 ml/min; Est GFR (African American) 139.5 ml/min; Est GFR (Non-African American) 120.4 ml/min; Magnesium 1.7 mg/dl (1.7-2.4); Potassium 3.4 mmol/L (3.5-5.1)
[2022-09-14 08:29] LABS: Anisocytosis Present; Polychromasia 1+
[2022-09-14] MEDS ORDERED: POTASSIUM CHLORIDE CRTAB 20 MEQ TABCR PO STA (08:47)
[2022-09-14] MEDS: PANTOprazole 40 MG TAB PO SCH (08:56)
[2022-09-14] MEDS: ASCORBIC ACID 500 MG TAB PO SCH (08:56)
[2022-09-14] MEDS: NICOTINE POLACRILEX 2 MG GUM MT PRN (08:56)
[2022-09-14] MEDS: FERROUS SULFATE 325 MG/7.4 ML UDP PO SCH (08:57)
[2022-09-14] MEDS: NICOTINE 21 MG/24 HR TDSY TD SCH (08:57)
[2022-09-14] MEDS ORDERED: FOLIC ACID 1 MG TAB PO SCH (09:00)
[2022-09-14] MEDS ORDERED: THIAMINE HCL 100 MG TAB PO SCH (09:00)
[2022-09-14] MEDS ORDERED: MULTIVITAMIN TAB PO SCH (09:00)
[2022-09-14] MEDS ORDERED: ENOXAPARIN INJ 40 MG/0.4 ML SYR SQ SCH (09:00)
--- NOTE | 2022-09-14 14:29 | Hospitalist Progress Note ---
Date of Service September 14, 2022 Assessment & Plan (1) Delirium tremens: Plan: acute secondary to alcohol abuse, now resolved required transfer to ICU, precedex and ativan tapered off Precedex on Patient downgraded from ICU to med telemetry she will be permitted to go outside with family and aide should be on Librium 10 mg 3 times daily and adjust tapering doses Patient agreeable to naltrexone therapy postdischarge (2) Anemia: Plan: Acute Symptomatic anemia hemoglobin is low but stable recommend outpatient supplementation and following transfused 1 unit PRBC Protonix 40 mg bid Endoscopy performed on 12 September shows diffuse mild inflammation with erythema in the stomach duodenal bulb and second portion of duodenum were normal chronic Iron deficiency, acute on chronic likely GI losses are more chronic, once stable begin iron replacement orally once outpatient CTA/P with IV contrast: Hepatic steatosis, no other acute abnormalities. No evidence of extravasation/ (3) Alcohol abuse: Plan: acute Transaminitis suspect from alcohol use DT and acute alcohol withdrawal now resolving Thiamine high-dose protocol ordered, folic acid ordered Hepatitis acute panel negative, discharged Hyponatremia, replete hypokalemia hypomagnesemia these are now replete (4) Tobacco use: Plan: chronic, councelling offered, on nicotine patch (5) Depression: Plan: Anxiety/depression Bupropion can be resumed at discharge Admission and Anticipated Discharge Date Admission Date: September 09, 2022 Subjective Patient feels improved his discussion about where she is going to go after her hospital stay still not defined disposition regarding where she will live. Wis hes to avoid going home as she will have access to alcohol in her home. Her father is talking to her sister to try to arrange for her to stay with 1 of those 2 folks. She is still slightly tremulous but improved she has clear mentation at this time We discussed naltrexone therapy and the benefit of having good support structure and we will begin tapering doses of Librium after discharge Physical Exam Physical Exam: Awake alert appropriate less tremulous but still some minor tremor Card exam is tachycardic at times lungs are clear Extremities are still trace edema or upper extremity edema is likely related to some recent blood draws and Coban but she does still has trace lower extremity edema Results & Data Results & Data Vital Signs (Past 12 Hours) Vital Signs Temp Pulse Pulse Resp BP Pulse Ox O2 Del Method 09/14/22 07:00 90 09/14/22 08:14 98.6 F 82 18 126/81 98 Room Air 09/14/22 04:24 98.1 F 88 20 128/75 98 Room Air Laboratory Results Reviewed CBC reviewed chemistry PG Care Time/CCT Total # of Minutes Spent Total Time Spent with Patient: Total time spent is greater than 50% in coordination of care (as documented) at patient's floor/unit and/or counseling patient: Coding Level of Care Code 57124 SUB INP/OBS CARE 2/35MIN Diagnoses Delirium tremens F10.931 Anemia D64.9 Alcohol abuse F10.10 Tobacco use Z72.0 Depression F32.A
--- NOTE | 2022-09-14 15:38 | Discharge Summary ---
Date of Service September 14, 2022 Admission HPI Per Admitting Provider Sobeida is a 47-year-old female with a past medical history of alcohol abuse, hypertension, depression, GERD, tobacco use who presents for symptomatic anemia. Sobeida reports that she fell on Friday. Has been having black tarry stools for 1 week. Has them intermittently not every day. No stomach pain. No nausea or vomiting.Prior to this week no dark/black BMs. Lightheadedness and dizziness started one week ago. Has had intermittently off and on in the past a few episodes a month. Eppisodes usually last a few hours. Sitting improves them, manning snot note any exacerbating factors. No vertigo. No history of bleeding problems. No fevers, chills, or sweats. No recent illnesses. No chest pain or chest or chest pressure. Has >10 stairs in her home and goes up those and she push mow her grass. No chest pain or pressure/shortness of breath with those activities. Endorses hx of acid reflux/GERD for a few years but seems to be 'under control' with 20mg of prilosec daily which she has been on for at least 3 years. No history of upper endoscopy or lower endoscopy. Uses ibuprofen occasionally, usually about monthly will take 4x 200mg usually just once and does OK, uses as needed for muscle strains and headache as normal Denies other medical problems. NO family history of bleeding problems. Father had a history of afib with cardioembolic CVA around 60s. No family history of colon or rectal cancer Medical History: Reviewed Medications: Reviewed Surgical History: Reviewed. Family history: Reviewed Allergies: Reviewed. NKDA, NKFA. Allergic to bees. Social History: Current smoker, 1ppd tobacco use x20 years. Alcohol ~3-4, beer and number ranges from 3-10 per day. Last drink yesteday evening. No rec drug or marijuana use. Code Status: Full Code. Principal Diagnosis alcohol withdrawal with delirium tremens anemia s/p 1 unit prbc transfusion Discharge Exam pt is awake and alert, minor tremor Discharge Data Allergies Allergy/AdvReac Type Severity Reaction Status Date / Time bee venom protein (honey bee) Allergy Verified 09/12/22 10:52 No Known Drug Allergies Allergy Verified 09/12/22 10:52 Consultations 09/09/22 16:27 ED Decision to Admit Stat 09/10/22 14:33 Consult Gastroenterology Routine 09/11/22 20:08 Consult Shoe Stitcher Odd Routine Procedures Performed Operation Date: 09/12/22 16:30 Actual Procedures p EGD Biopsy Cytology - Pastor Acosta MD Ordered Studies 09/09/22 14:54 CT abd pelvis IV con only Stat CT head/brain wo con Stat Hospital Course (1) Delirium tremens: acute secondary to alcohol abuse, now resolved required transfer to ICU, precedex and ativan tapered off Precedex on Patient downgraded from ICU to med telemetry she will be permitted to go outside with family and aide should be on Librium 10 mg 3 times daily and adjust tapering doses Patient agreeable to naltrexone therapy postdischarge (2) Anemia: Acute Symptomatic anemia hemoglobin is low but stable recommend outpatient supplementation and following transfused 1 unit PRBC Protonix 40 mg bid Endoscopy performed on 12 September shows diffuse mild inflammation with erythema in the stomach duodenal bulb and second portion of duodenum were normal chronic Iron deficiency, acute on chronic likely GI losses are more chronic, once stable begin iron replacement orally once outpatient CTA/P with IV contrast: Hepatic steatosis, no other acute abnormalities. No evidence of extravasation/ (3) Alcohol abuse: acute Transaminitis suspect from alcohol use DT and acute alcohol withdrawal now resolving Thiamine high-dose protocol ordered, folic acid ordered Hepatitis acute panel negative, discharged Hyponatremia, replete hypokalemia hypomagnesemia these are now replete (4) Tobacco use: chronic, councelling offered, on nicotine patch (5) Depression: Anxiety/depression Bupropion can be resumed at discharge Total Time Total Time Spent Total Time Spent (In Minutes): it took greater than 30 minutes to complete Discharge Plan Discharge Items Patient Disposition: Home - Self-Care Reason For Visit: SYMPTOMATIC ANEMIA, AWSS, GIB Discharge Diagnosis: Alcohol withdrawal with delirium tremens Anemia status post 1 unit packed red blood cells Activity: Per Instructions section Activity Comment: Gradually improve activity Non-emergency contact: Primary Care Provider Call non-emergency contact if: your symptoms worsen Follow-up/Referrals: Patricia Arias MD [Primary Care Provider] - Diet: Regular Ambulatory Orders: Complete Blood Count no Diff (Routine) Timeframe: 1 Week Location: Determined by Patient Ordered By: Lalito Lytl Attending Provider Instructions: Due to very serious alcohol withdrawal event requiring intensive care unit admission and monitoring. It is imperative that you do not drink any alcohol or have access to any alcohol if you have a chance of improving her health in the future Be strongly recommend that you participate in a rehab program of some kind even considering Alcoholics Anonymous In regard to your anemia you did have a endoscopy which did not show any signs of active bleeding and we recommended that you have good nutrition sleep physical activity to eventually improve your blood count this could include taking vitamins and iron supplementation [id number] with. Its been found that taking iron every other day is actually with improved effects to taking iron every day. Iron may cause constipation so be short if that occurs with you use laxatives and fiber agents to improve bowel movements It be worthwhile to have your blood checked in 1 week and then follow-up with your family physician for future checks Pending Studies at Discharge: No Stand-Alone Forms: My [facility] [place], Smoking Cessation Medications and DC Order Prescriptions: New chlordiazepoxide HCl 10 mg Capsule 10 mg PO TID Qty: 12 0RF Rx Instructions: 1 tab 3 x a day x 2d>1 tab 2 x a day x 2 d>1 tab a day naltrexone 50 mg tablet 50 mg PO DAILY Qty: 30 4RF multivitamin with folic acid [Daily-Cherelle (with folic acid)] 400 mcg Tablet 1 tab PO QAM Qty: 60 0RF ferrous sulfate 325 mg (65 mg iron) tablet 325 mg PO Q OTHER DAY Qty: 30 5RF Continued omeprazole 20 mg capsule,delayed release(DR/EC) 20 mg PO DAILY Qty: 90 1RF bupropion HCl [Wellbutrin SR] 100 mg tablet sustained-release 12 hr 100 mg PO BID Qty: 180 1RF Discontinued diphenhydramine HCl [Benadryl] 25 mg capsule 25 mg PO HS PRN (Reason: Sleep) Discharge Orders: Discharge Order (Routine); Ordered 09/14/22 Ordered By: Lalito Langford Admission Data Admit Date/Time: 09/09/22 17:05 Attending Provider: Lalito Langford Admit Provider: Christopher Quintero Primary Care Provider: Patricia Arias Other Providers: Christopher Quintero ; Pastor Acosta ; Jorge A Herzog ; Tino Guerrero ; Cornel Bah ; Jay Cano ; Guillaume Rivera ; Eren Gage ; Lillian Montez ; Thom Cavazos ; Naye Garner Coding Level of Care Code 15232 INP/OBS DISCH >30 MIN Diagnoses Delirium tremens F10.931 Anemia D64.9 Alcohol abuse F10.10 Tobacco use Z72.0 Depression F32.A
== END 2022-09-14 16:15 | disposition home or self-care (01) | DRG 812 ==
LOC: ED 13:53 → SUATTDRO 17:05 → 2E 17:05 → 1E 09-11 20:59 → 2N 09-13 18:13